=== PATIENT | female | born 1990 | race African-American/Black ===

== ENCOUNTER 2016-07-29 09:36 | Emergency (ER) | payer OTHER ==
[~2016-07-29 09:36] MED LIST: /ESCI20TA OR; /QUET10TA OR; FERR325T3 PO; IBUP200T45 PO; LAMI25TA OR; NORCOTAB PO; TRAM50TA2 OR
[2016-07-29 10:46] LABS: ANION GAP 11 MEQ/L (8-16); BLOOD UREA NITROGEN 8 MG/DL (7-18); CALCIUM LEVEL 9.1 MG/DL (8.5-10.1); CARBON DIOXIDE LEVEL 24 MEQ/L (21-32); CHLORIDE LEVEL 105 MEQ/L (98-107); GLOMERULAR FILTRATION RATE > 60.0 (>60); GLUCOSE, FASTING 78 MG/DL (70-105); POTASSIUM SERUM 3.4 MEQ/L (3.5-5.1); SODIUM LEVEL 140 MEQ/L (136-145)
--- NOTE | 2016-07-29 10:54 | ECGEPIP ---
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
[2016-07-29] MEDS ORDERED: POTASSIUM CHLORIDE 10 MEQ SR TABLET As Ordered ONE (11:25)
[2016-07-29] MEDS ORDERED: MECLIZINE 12.5 MG TAB As Ordered ONE (12:42)
--- NOTE | 2016-07-29 13:53 | EDDOCDS ---
Physician Documentation [facility] Name: Rebeca Walters Age: 25 yrs Sex: Female : 1990 Arrival Date: 07/29/2016 Time: 09:36 Bed 10 Private MD: NO PRIMARY PHYSICIAN, . Disposition: 07/29 10:52 I have independently interviewed and examined the patient, and I agree with the pc investigation, diagnosis and treatment plan as documented by the Resident. Disposition: 07/29/16 13:39 Discharged to Home/Self Care. Impression: Hypokalemia, Other peripheral vertigo. - Condition is Stable. - Discharge Instructions: Vertigo, [id number]. - Prescriptions for Antivert 50 mg Oral Tablet - take 1 tablet by ORAL route 2 times per day; 20 tablet. - Medication Reconciliation, Local Pharmacy Hours, Work Release Form - 1 day form. - Follow up: Tyler Paiz; When: Call to arrange an appointment; Reason: Recheck today's complaints, Continuance of care. Follow up: Guzman Aguirre; When: Call to arrange an appointment; Reason: Recheck today's complaints, Continuance of care. - Problem is new. - Symptoms have improved. - Notes: You were evaluated in the emergency department for palpitations and dizziness. Except for your potassium being a little low, the rest of your work-up has been negative. You were given potassium and meclizine in the ED. A prescription of meclizine has been provided at time of discharge. Please schedule an appointment with your DANCE PROFESSOR and with Guzman Aguirre at your soonest convenience to discuss today's complaints. Historical: - Allergies: no known allergies; - Home Meds: 1. none - PMHx: Migraine Headaches; - PSHx: x 3; - Social history: Smoking status: Patient states former smoker of tobacco. No barriers to communication noted, The patient speaks fluent Chadian. - Family history: Not pertinent. - : The pt / caregiver states he / she is not on anticoagulants. Home medication list is obtained from the patient. - Exposure Risk Screening:: None identified. DANCE PROFESSOR: 09:45 LMP 04/09/2016, Verified, EDC 01/14/2017, Gestational age from LMP: 15 weeks 6 jjr days Vital Signs: 09:38 BP 148 / 91; Pulse 93; Resp 16; Temp 98.4; Pulse Ox 100% on R/A; Weight 123.38 kg / elp 272.01 lbs (R); Height 5 ft. 1 in. (154.94 cm) (R); Pain 0/10; 10:38 BP 133 / 99 Supine; Pulse 79; ead 10:39 BP 127 / 78 Sitting; Pulse 80; ead 10:40 BP 131 / 74 Standing; Pulse 80; ead 12:45 BP 143 / 85 (auto/); ead 12:46 Pulse 92 MON; Resp 16; Pulse Ox 100% on R/A; Pain 0/10; ead 13:51 BP 144 / 79; Pulse 82; Resp 16; Temp 98.6(O); Pulse Ox 99% on R/A; Pain 0/10; ead 09:38 Body Mass Index 51.39 (123.38 kg, 154.94 cm) elp MDM: 09:48 ECG WITH READING ER PHYS+CARDIAG ordered. EDMS 10:04 Heart Tones ordered. jo4 10:12 Orthostatic VS ordered. jo4 10:32 BMP Ordered. EDMS 10:40 Financial registration complete. mm15 10:44 [facility] Payment Agreement was scanned into [employer] and attached to record. mm15 11:13 BMP Reviewed. jo4 11:14 Potassium Chloride Extended Release Tablet 40 mEq PO once ordered. jo4 11:31 EKG-ADULT Reviewed. jo4 12:28 Meclizine 50 mg PO once ordered. jo4 Administered Medications: 11:29 Drug: Potassium Chloride 40 mEq [potassium chloride ER 10 mEq tablet,extended release ead (4 tabs)] Route: PO; 12:24 Follow up: Response: No Adverse Reaction ead 12:48 Drug: Meclizine 50 mg [meclizine 12.5 mg tablet (4 tabs)] Route: PO; ead Signatures: Dispatcher [employer] EDMS Alberto Gomez MD MD pc Raymond, Jessica, RN RN jjr McGrath, Marlynn mm15 Sara Vásquez RN RN eaKerri Devine DO DO jo4 The chart was reviewed and I authenticate all verbal orders and agree with the evaluation and treatment provided.Attachments: 10:44 [facility] Payment Agreement mm15 MTDD
--- NOTE | 2016-07-29 13:54 | EDDOCDS ---
Nurse's Notes [facility] Name: Sylwia Briceno Age: 25 yrs Sex: Female : 1990 Arrival Date: 07/29/2016 Time: 09:36 Bed 10 Private MD: NO PRIMARY PHYSICIAN, . Diagnosis: Hypokalemia;Other peripheral vertigo Presentation: 07/29 09:44 Presenting complaint: Patient states: sudden onset heart racing at 0830 this morning, jjr has happened intermittently since with worsening dizziness, pt is approx 16 weeks . Adult Sepsis Screening: The patient does not have new or worsening altered mentation. Patient's respiratory rate is less than 22. Systolic blood pressure is greater than 100. Patient has a qSOFA score of 0- Negative Sepsis Screen. Suicide/Homicide risk assessment- the patient denies having any suicidal and/or homicidal ideations and does not present with any other emotional, behavioral or mental health complaints. Status: Patient is not a special service representative or dependent. Transition of care: patient was not received from another setting of care. 09:44 Acuity: BRYANNA Level 3 jjr 09:44 Method Of Arrival: Walkin/Carried/Asstd jjr Triage Assessment: 09:47 General: Appears in no apparent distress. Pain: Denies pain. HIV screening NA for this jjr visit Offered previously. Neurological: Reports dizziness. Cardiovascular: Chest pain is denied. : Denies cramping vaginal bleeding. 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 none - PMHx: Migraine Headaches; - PSHx: x 3; - Social history: Smoking status: Patient states former smoker of tobacco. No barriers to communication noted, The patient speaks fluent Hebrew. - Family history: Not pertinent. - : The pt / caregiver states he / she is not on anticoagulants. Home medication list is obtained from the patient. - Exposure Risk Screening:: None identified. Screenin:50 Screening information is obtained from the patient. Fall risk: No risks identified. ead Assistance ADL's: requires no assistance with activities of daily living. Abuse/DV Screen: The patient / caregiver reports he/she is: not in a situation that causes fear, pain or injury. Nutritional screening: No deficits noted. Advance Directives: Currently, there is no health care proxy. home support is adequate. Assessment: 10:19 General: Appears in no apparent distress, comfortable, Behavior is appropriate for age, ead cooperative. Pain: Denies pain. Neurological: Level of Consciousness is awake, alert, obeys commands, Oriented to person, place, time, Reports dizziness. Cardiovascular: Reports palpitations. Respiratory: Airway is patent Respiratory effort is even, unlabored. Derm: Skin is dry, Skin is normal. 11:31 Adult Sepsis Screening: The patient does not have new or worsening altered mentation. ead Patient's respiratory rate is less than 22. Systolic blood pressure is greater than 100. Patient has a qSOFA score of 0- Negative Sepsis Screen. General: Appears in no apparent distress, comfortable, Behavior is appropriate for age, cooperative. Neurological: Level of Consciousness is awake, alert, obeys commands, Oriented to person, place, time, Reports dizziness. Respiratory: Airway is patent Respiratory effort is even, unlabored. Derm: Skin is pink, warm & dry. 12:30 General: Appears in no apparent distress, comfortable, Behavior is appropriate for age, ead cooperative. Pain: Denies pain. Neurological: Reports dizziness. Respiratory: Airway is patent Respiratory effort is even, unlabored. Derm: No deficits noted. 13:40 General: Appears in no apparent distress, comfortable, Behavior is appropriate for age, ead cooperative. Pain: Denies pain. Neurological: Level of Consciousness is awake, alert, obeys commands, Oriented to person, place, time. Respiratory: No deficits noted. Derm: Skin is dry, Skin is normal. Vital Signs: 09:38 BP 148 / 91; Pulse 93; Resp 16; Temp 98.4; Pulse Ox 100% on R/A; Weight 123.38 kg (R); elp Height 5 ft. 1 in. (154.94 cm) (R); Pain 0/10; 10:38 BP 133 / 99 Supine; Pulse 79; ead 10:39 BP 127 / 78 Sitting; Pulse 80; ead 10:40 BP 131 / 74 Standing; Pulse 80; ead 12:45 BP 143 / 85 (auto/); ead 12:46 Pulse 92 MON; Resp 16; Pulse Ox 100% on R/A; Pain 0/10; ead 13:51 BP 144 / 79; Pulse 82; Resp 16; Temp 98.6(O); Pulse Ox 99% on R/A; Pain 0/10; ead 09:38 Body Mass Index 51.39 (123.38 kg, 154.94 cm) elp Vitals: 09:38 Log In Time: July 29, 2016 at 09:36. RN notified that patient meets Red Flag elp criteria. 10:45 Heart Tones 142BPM. ead ED Course: 09:38 Patient visited by Indira Jimenez PCA. elp 09:38 NO PRIMARY PHYSICIAN, . is Private Physician. elp 09:38 Patient moved to Waiting elp 09:39 Patient visited by Indira Jimenez PCA. elp 09:41 Sara Vásquez RN is Primary Nurse. elp 09:41 Patient moved to 10 elp 09:45 Triage Initiated jjr 09:52 Kerri Roa DO is PHCP. jo4 09:52 Alberto Gomez MD is Attending Physician. jo4 10:00 EKG done. (by ED staff). Reviewed by Kerri Roa DO. rn1 10:02 Patient visited by Kerri Roa DO. jo4 10:02 Patient visited by Kerri Roa DO. jo4 10:19 Patient visited by Sara Vásquez RN. ead 10:19 Inserted saline lock: 22 gauge in left antecubital area and blood collected. The ead patient tolerated the procedure well. 10:44 [facility] Payment Agreement was scanned into [employer] and attached to record. mm15 10:45 Patient visited by Sara Vásquez RN. ead 11:12 EKG-ADULT Returned. EDMS 11:23 Patient visited by Sara Vásquez RN. eaantonella 12:24 Patient visited by Sara Vásquez RN. ead 12:41 Patient visited by Sara Vásquez RN. ead 13:12 Pt greeted and oriented to ED. Patient advised of names of staff involved in care, rs6 location of call rivero, wait times and NPO status. Accompanied by Significant Other, Patient has correct armband on for positive identification. Placed in gown. Bed in low position. Call light in reach. Side rails up X 1. home decorator on. Pulse ox on. NIBP on. 13:12 Assisted with bedpan. rs6 13:13 Patient visited by Lisa Reno PCA. rs6 13:39 Tyler Paiz MD is Referral Physician. jo4 13:39 Guzman Aguirre PA is Referral Physician. jo4 13:50 The patient / caregiver is instructed regarding the plan of care and ED course. ead 13:50 Discontinued lock intact, bleeding controlled, pressure dressing applied, No ead redness/swelling at site. No procedures done that require assistance. Administered Medications: 11:29 Drug: Potassium Chloride 40 mEq [potassium chloride ER 10 mEq tablet,extended release ead (4 tabs)] Route: PO; 12:24 Follow up: Response: No Adverse Reaction ead 12:48 Drug: Meclizine 50 mg [meclizine 12.5 mg tablet (4 tabs)] Route: PO; ead Order Results: Lab Order: MELBA; SPEC'M 07/29/16 10:16 Test: GLUCOSE, FASTING; Value: 78; Range: 70-105; Units: MG/DL; Status: F Test: BLOOD UREA NITROGEN; Value: 8; Range: 7-18; Units: MG/DL; Status: F Test: CREATININE FOR GFR; Value: 0.60; Range: 0.55-1.02; Units: MG/DL; Status: F Test: GLOMERULAR FILTRATION RATE; Value: > 60.0; Range: >60; Status: F Test: SODIUM LEVEL; Value: 140; Range: 136-145; Units: MEQ/L; Status: F Test: POTASSIUM SERUM; Value: 3.4; Range: 3.5-5.1; Abnormal: Below low normal; Units: MEQ/L; Status: F Test: CHLORIDE LEVEL; Value: 105; Range: 98-107; Units: MEQ/L; Status: F Test: CARBON DIOXIDE LEVEL; Value: 24; Range: 21-32; Units: MEQ/L; Status: F Test: ANION GAP; Value: 11; Range: 8-16; Units: MEQ/L; Status: F Test: CALCIUM LEVEL; Value: 9.1; Range: 8.5-10.1; Units: MG/DL; Status: F Test Note: ; Units are mL/min/1.73 m2 Chronic Kidney Disease Staging per NKF: Stage I & II GFR >=60 Normal to Mildly Decreased Stage III GFR 30-59 Moderately Decreased Stage IV GFR 15-29 Severely Decreased Stage V GFR <15 Very Little GFR Left ESRD GFR <15 on CLAIMS ADJUSTER CROP Radiology Order: EKG-ADULT Test: EKG-ADULT REASON FOR EXAMINATION: palpitations; Stationary ECG Study; [facility] - ED; ; Test Date: 2016-07-29; Pat Name: SYLWIA BRICENO Department:; Room: -; Gender: F Clinical Education Specialist: rn; : 1990 Requested By: Alberto Snell; Order Number: [id number] Reading MD: Johana Green; Measurements; Intervals [place]; Rate: 85 P: 48; CT: 165 QRS: 21; QRSD: 89 T: 13; QT: 364; QTc: 433; Interpretive Statements; SINUS RHYTHM; NONSPECIFIC T-WAVE ABNORMALITY; NO PRIOR FOR COMPARISON; Electronically Signed On 07-29-2016 10:54:41 EST by Johana Green; Outcome: 13:39 Discharge ordered by Provider. jo4 13:51 Discharge Assessment: Patient awake and alert. obeys commands, Oriented to person, ead place and time. patient administered narcotics - no. The following High Risk Discharge criteria are identified: None. Discharged to home ambulatory, with significant other. Condition: improved. Discharge instructions given to patient, significant other, Instructed on discharge instructions, follow up and referral plans. medication usage, Demonstrated understanding of instructions, medications, Pt was receptive of discharge instructions/ teaching. Prescriptions given X 1, Work note provided to patient. No special radiology studies were completed. Property sent home with patient. 13:52 Patient left the ED. ead Signatures: Dispatcher CelsoHoGilda Mayer, RN Carlita Wall mm15 Indira Jimenez, SALES COMMUNICATIONS MANAGER SALES COMMUNICATIONS MANAGER alfredp Sara Vásquez RN RN ead Schmitt, Rebecca, SALES COMMUNICATIONS MANAGER SALES COMMUNICATIONS MANAGER [email or web address] Jacob Rosenberg rn1 Kerri Roa DO DO jo4 MTDD
--- NOTE | 2016-07-31 14:53 | EDDOCDS ---
Physician Documentation [facility] Name: Rebeca Walters Age: 25 yrs Sex: Female : 1990 Arrival Date: 07/29/2016 Time: 09:36 Bed 10 Private MD: NO PRIMARY PHYSICIAN, . Disposition: 07/29 10:52 I have independently interviewed and examined the patient, and I agree with the pc investigation, diagnosis and treatment plan as documented by the Resident. Disposition: 07/29/16 13:39 Discharged to Home/Self Care. Impression: Hypokalemia, Other peripheral vertigo. - Condition is Stable. - Discharge Instructions: Vertigo, [id number]. - Prescriptions for Antivert 50 mg Oral Tablet - take 1 tablet by ORAL route 2 times per day; 20 tablet. - Medication Reconciliation, Local Pharmacy Hours, Work Release Form - 1 day form. - Follow up: Tyler Paiz; When: Call to arrange an appointment; Reason: Recheck today's complaints, Continuance of care. Follow up: Guzman Aguirre; When: Call to arrange an appointment; Reason: Recheck today's complaints, Continuance of care. - Problem is new. - Symptoms have improved. - Notes: You were evaluated in the emergency department for palpitations and dizziness. Except for your potassium being a little low, the rest of your work-up has been negative. You were given potassium and meclizine in the ED. A prescription of meclizine has been provided at time of discharge. Please schedule an appointment with your CONTINGENTS SUPERVISOR and with Guzman Aguirre at your soonest convenience to discuss today's complaints. Historical: - Allergies: no known allergies; - Home Meds: 1. none - PMHx: Migraine Headaches; - PSHx: x 3; - Social history: Smoking status: Patient states former smoker of tobacco. No barriers to communication noted, The patient speaks fluent Senegalese. - Family history: Not pertinent. - : The pt / caregiver states he / she is not on anticoagulants. Home medication list is obtained from the patient. - Exposure Risk Screening:: None identified. CONTINGENTS SUPERVISOR: 09:45 LMP 04/09/2016, Verified, EDC 01/14/2017, Gestational age from LMP: 15 weeks 6 jjr days Vital Signs: 09:38 BP 148 / 91; Pulse 93; Resp 16; Temp 98.4; Pulse Ox 100% on R/A; Weight 123.38 kg / elp 272.01 lbs (R); Height 5 ft. 1 in. (154.94 cm) (R); Pain 0/10; 10:38 BP 133 / 99 Supine; Pulse 79; ead 10:39 BP 127 / 78 Sitting; Pulse 80; ead 10:40 BP 131 / 74 Standing; Pulse 80; ead 12:45 BP 143 / 85 (auto/); ead 12:46 Pulse 92 MON; Resp 16; Pulse Ox 100% on R/A; Pain 0/10; ead 13:51 BP 144 / 79; Pulse 82; Resp 16; Temp 98.6(O); Pulse Ox 99% on R/A; Pain 0/10; ead 09:38 Body Mass Index 51.39 (123.38 kg, 154.94 cm) elp MDM: 09:48 ECG WITH READING ER PHYS+CARDIAG ordered. EDMS 10:04 Heart Tones ordered. jo4 10:12 Orthostatic VS ordered. jo4 10:32 BMP Ordered. EDMS 10:40 Financial registration complete. mm15 10:44 [facility] Payment Agreement was scanned into [employer] and attached to record. mm15 11:13 BMP Reviewed. jo4 11:14 Potassium Chloride Extended Release Tablet 40 mEq PO once ordered. jo4 11:31 EKG-ADULT Reviewed. jo4 12:28 Meclizine 50 mg PO once ordered. jo4 14:59 T-Sheet-- Draft Copy was scanned into [employer] and attached to record. gb 15:00 ECG/EKG was scanned into [employer] and attached to record. gb Administered Medications: 11:29 Drug: Potassium Chloride 40 mEq [potassium chloride ER 10 mEq tablet,extended release ead (4 tabs)] Route: PO; 12:24 Follow up: Response: No Adverse Reaction ead 12:48 Drug: Meclizine 50 mg [meclizine 12.5 mg tablet (4 tabs)] Route: PO; ead Signatures: Dispatcher [employer] EDMS Alberto Gomez MD MD pc Kristine Lai, Reg Reg gb Gilda Membreno, RN RN Carlita Pena mm15 Sara Vásquez RN RN swatiKerri Devine DO DO jo4 The chart was reviewed and I authenticate all verbal orders and agree with the evaluation and treatment provided.Attachments: 10:44 [facility] Payment Agreement mm15 14:59 T-Sheet-- Draft Copy gb 15:00 ECG/EKG gb Chart Complete MTDD
--- NOTE | 2016-07-31 14:53 | EDDOCDS ---
Physician Documentation [facility] Name: Rebeca Walters Age: 25 yrs Sex: Female : 1990 Arrival Date: 07/29/2016 Time: 09:36 Bed 10 Private MD: NO PRIMARY PHYSICIAN, . Disposition: 07/29 10:52 I have independently interviewed and examined the patient, and I agree with the pc investigation, diagnosis and treatment plan as documented by the Resident. Disposition: 07/29/16 13:39 Discharged to Home/Self Care. Impression: Hypokalemia, Other peripheral vertigo. - Condition is Stable. - Discharge Instructions: Vertigo, [id number]. - Prescriptions for Antivert 50 mg Oral Tablet - take 1 tablet by ORAL route 2 times per day; 20 tablet. - Medication Reconciliation, Local Pharmacy Hours, Work Release Form - 1 day form. - Follow up: Tyler Paiz; When: Call to arrange an appointment; Reason: Recheck today's complaints, Continuance of care. Follow up: Guzman Aguirre; When: Call to arrange an appointment; Reason: Recheck today's complaints, Continuance of care. - Problem is new. - Symptoms have improved. - Notes: You were evaluated in the emergency department for palpitations and dizziness. Except for your potassium being a little low, the rest of your work-up has been negative. You were given potassium and meclizine in the ED. A prescription of meclizine has been provided at time of discharge. Please schedule an appointment with your SPRING FITTER and with Guzman Aguirre at your soonest convenience to discuss today's complaints. Historical: - Allergies: no known allergies; - Home Meds: 1. none - PMHx: Migraine Headaches; - PSHx: x 3; - Social history: Smoking status: Patient states former smoker of tobacco. No barriers to communication noted, The patient speaks fluent German. - Family history: Not pertinent. - : The pt / caregiver states he / she is not on anticoagulants. Home medication list is obtained from the patient. - Exposure Risk Screening:: None identified. SPRING FITTER: 09:45 LMP 04/09/2016, Verified, EDC 01/14/2017, Gestational age from LMP: 15 weeks 6 jjr days Vital Signs: 09:38 BP 148 / 91; Pulse 93; Resp 16; Temp 98.4; Pulse Ox 100% on R/A; Weight 123.38 kg / elp 272.01 lbs (R); Height 5 ft. 1 in. (154.94 cm) (R); Pain 0/10; 10:38 BP 133 / 99 Supine; Pulse 79; ead 10:39 BP 127 / 78 Sitting; Pulse 80; ead 10:40 BP 131 / 74 Standing; Pulse 80; ead 12:45 BP 143 / 85 (auto/); ead 12:46 Pulse 92 MON; Resp 16; Pulse Ox 100% on R/A; Pain 0/10; ead 13:51 BP 144 / 79; Pulse 82; Resp 16; Temp 98.6(O); Pulse Ox 99% on R/A; Pain 0/10; ead 09:38 Body Mass Index 51.39 (123.38 kg, 154.94 cm) elp MDM: 09:48 ECG WITH READING ER PHYS+CARDIAG ordered. EDMS 10:04 Heart Tones ordered. jo4 10:12 Orthostatic VS ordered. jo4 10:32 BMP Ordered. EDMS 10:40 Financial registration complete. mm15 10:44 [facility] Payment Agreement was scanned into [employer] and attached to record. mm15 11:13 BMP Reviewed. jo4 11:14 Potassium Chloride Extended Release Tablet 40 mEq PO once ordered. jo4 11:31 EKG-ADULT Reviewed. jo4 12:28 Meclizine 50 mg PO once ordered. jo4 14:59 T-Sheet-- Draft Copy was scanned into [employer] and attached to record. gb 15:00 ECG/EKG was scanned into [employer] and attached to record. gb Administered Medications: 11:29 Drug: Potassium Chloride 40 mEq [potassium chloride ER 10 mEq tablet,extended release ead (4 tabs)] Route: PO; 12:24 Follow up: Response: No Adverse Reaction ead 12:48 Drug: Meclizine 50 mg [meclizine 12.5 mg tablet (4 tabs)] Route: PO; ead Signatures: Dispatcher [employer] EDMS Alberto Gomez MD MD pc Kristine Lai, Reg Reg gb Gilda Membreno, RN RN Carlita Pena mm15 Sara Vásquez RN RN swatiKerri Devine DO DO jo4 The chart was reviewed and I authenticate all verbal orders and agree with the evaluation and treatment provided.Attachments: 10:44 [facility] Payment Agreement mm15 14:59 T-Sheet-- Draft Copy gb 15:00 ECG/EKG gb Chart Complete MTDD
--- NOTE | 2016-07-31 14:53 | EDDOCDS ---
Nurse's Notes [facility] Name: Sylwia Briceno Age: 25 yrs Sex: Female : 1990 Arrival Date: 07/29/2016 Time: 09:36 Bed 10 Private MD: NO PRIMARY PHYSICIAN, . Diagnosis: Hypokalemia;Other peripheral vertigo Presentation: 07/29 09:44 Presenting complaint: Patient states: sudden onset heart racing at 0830 this morning, jjr has happened intermittently since with worsening dizziness, pt is approx 16 weeks . Adult Sepsis Screening: The patient does not have new or worsening altered mentation. Patient's respiratory rate is less than 22. Systolic blood pressure is greater than 100. Patient has a qSOFA score of 0- Negative Sepsis Screen. Suicide/Homicide risk assessment- the patient denies having any suicidal and/or homicidal ideations and does not present with any other emotional, behavioral or mental health complaints. Status: Patient is not a financial services director or dependent. Transition of care: patient was not received from another setting of care. 09:44 Acuity: BRYANNA Level 3 jjr 09:44 Method Of Arrival: Walkin/Carried/Asstd jjr Triage Assessment: 09:47 General: Appears in no apparent distress. Pain: Denies pain. HIV screening NA for this jjr visit Offered previously. Neurological: Reports dizziness. Cardiovascular: Chest pain is denied. : Denies cramping vaginal bleeding. 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 none - PMHx: Migraine Headaches; - PSHx: x 3; - Social history: Smoking status: Patient states former smoker of tobacco. No barriers to communication noted, The patient speaks fluent Lithuanian. - Family history: Not pertinent. - : The pt / caregiver states he / she is not on anticoagulants. Home medication list is obtained from the patient. - Exposure Risk Screening:: None identified. Screenin:50 Screening information is obtained from the patient. Fall risk: No risks identified. ead Assistance ADL's: requires no assistance with activities of daily living. Abuse/DV Screen: The patient / caregiver reports he/she is: not in a situation that causes fear, pain or injury. Nutritional screening: No deficits noted. Advance Directives: Currently, there is no health care proxy. home support is adequate. Assessment: 10:19 General: Appears in no apparent distress, comfortable, Behavior is appropriate for age, ead cooperative. Pain: Denies pain. Neurological: Level of Consciousness is awake, alert, obeys commands, Oriented to person, place, time, Reports dizziness. Cardiovascular: Reports palpitations. Respiratory: Airway is patent Respiratory effort is even, unlabored. Derm: Skin is dry, Skin is normal. 11:31 Adult Sepsis Screening: The patient does not have new or worsening altered mentation. ead Patient's respiratory rate is less than 22. Systolic blood pressure is greater than 100. Patient has a qSOFA score of 0- Negative Sepsis Screen. General: Appears in no apparent distress, comfortable, Behavior is appropriate for age, cooperative. Neurological: Level of Consciousness is awake, alert, obeys commands, Oriented to person, place, time, Reports dizziness. Respiratory: Airway is patent Respiratory effort is even, unlabored. Derm: Skin is pink, warm & dry. 12:30 General: Appears in no apparent distress, comfortable, Behavior is appropriate for age, ead cooperative. Pain: Denies pain. Neurological: Reports dizziness. Respiratory: Airway is patent Respiratory effort is even, unlabored. Derm: No deficits noted. 13:40 General: Appears in no apparent distress, comfortable, Behavior is appropriate for age, ead cooperative. Pain: Denies pain. Neurological: Level of Consciousness is awake, alert, obeys commands, Oriented to person, place, time. Respiratory: No deficits noted. Derm: Skin is dry, Skin is normal. Vital Signs: 09:38 BP 148 / 91; Pulse 93; Resp 16; Temp 98.4; Pulse Ox 100% on R/A; Weight 123.38 kg (R); elp Height 5 ft. 1 in. (154.94 cm) (R); Pain 0/10; 10:38 BP 133 / 99 Supine; Pulse 79; ead 10:39 BP 127 / 78 Sitting; Pulse 80; ead 10:40 BP 131 / 74 Standing; Pulse 80; ead 12:45 BP 143 / 85 (auto/); ead 12:46 Pulse 92 MON; Resp 16; Pulse Ox 100% on R/A; Pain 0/10; ead 13:51 BP 144 / 79; Pulse 82; Resp 16; Temp 98.6(O); Pulse Ox 99% on R/A; Pain 0/10; ead 09:38 Body Mass Index 51.39 (123.38 kg, 154.94 cm) elp Vitals: 09:38 Log In Time: July 29, 2016 at 09:36. RN notified that patient meets Red Flag elp criteria. 10:45 Heart Tones 142BPM. ead ED Course: 09:38 Patient visited by Indira Jimenez PCA. elp 09:38 NO PRIMARY PHYSICIAN, . is Private Physician. elp 09:38 Patient moved to Waiting elp 09:39 Patient visited by Indira Jimenez PCA. elp 09:41 Sara Vásquez RN is Primary Nurse. elp 09:41 Patient moved to 10 elp 09:45 Triage Initiated jjr 09:52 Kerri Roa DO is PHCP. jo4 09:52 Alberto Gomez MD is Attending Physician. jo4 10:00 EKG done. (by ED staff). Reviewed by Kerri Roa DO. rn1 10:02 Patient visited by Kerri Roa DO. jo4 10:02 Patient visited by Kerri Roa DO. jo4 10:19 Patient visited by Sara Vásquez RN. ead 10:19 Inserted saline lock: 22 gauge in left antecubital area and blood collected. The ead patient tolerated the procedure well. 10:44 [facility] Payment Agreement was scanned into [employer] and attached to record. mm15 10:45 Patient visited by Sara Vásquez RN. ead 11:12 EKG-ADULT Returned. EDMS 11:23 Patient visited by Sara Vásquez RN. eaantonella 12:24 Patient visited by Sara Vásquez RN. ead 12:41 Patient visited by Sara Vásquez RN. ead 13:12 Pt greeted and oriented to ED. Patient advised of names of staff involved in care, rs6 location of call rivero, wait times and NPO status. Accompanied by Significant Other, Patient has correct armband on for positive identification. Placed in gown. Bed in low position. Call light in reach. Side rails up X 1. monitoring manager on. Pulse ox on. NIBP on. 13:12 Assisted with bedpan. rs6 13:13 Patient visited by Lisa Reno PCA. rs6 13:39 Tyler Paiz MD is Referral Physician. jo4 13:39 Guzman Aguirre PA is Referral Physician. jo4 13:50 The patient / caregiver is instructed regarding the plan of care and ED course. ead 13:50 Discontinued lock intact, bleeding controlled, pressure dressing applied, No ead redness/swelling at site. No procedures done that require assistance. 14:59 T-Sheet-- Draft Copy was scanned into [employer] and attached to record. gb 15:00 ECG/EKG was scanned into [employer] and attached to record. gb Administered Medications: 11:29 Drug: Potassium Chloride 40 mEq [potassium chloride ER 10 mEq tablet,extended release ead (4 tabs)] Route: PO; 12:24 Follow up: Response: No Adverse Reaction ead 12:48 Drug: Meclizine 50 mg [meclizine 12.5 mg tablet (4 tabs)] Route: PO; ead Order Results: Lab Order: BMP; SPEC'M 07/29/16 10:16 Test: GLUCOSE, FASTING; Value: 78; Range: 70-105; Units: MG/DL; Status: F Test: BLOOD UREA NITROGEN; Value: 8; Range: 7-18; Units: MG/DL; Status: F Test: CREATININE FOR GFR; Value: 0.60; Range: 0.55-1.02; Units: MG/DL; Status: F Test: GLOMERULAR FILTRATION RATE; Value: > 60.0; Range: >60; Status: F Test: SODIUM LEVEL; Value: 140; Range: 136-145; Units: MEQ/L; Status: F Test: POTASSIUM SERUM; Value: 3.4; Range: 3.5-5.1; Abnormal: Below low normal; Units: MEQ/L; Status: F Test: CHLORIDE LEVEL; Value: 105; Range: 98-107; Units: MEQ/L; Status: F Test: CARBON DIOXIDE LEVEL; Value: 24; Range: 21-32; Units: MEQ/L; Status: F Test: ANION GAP; Value: 11; Range: 8-16; Units: MEQ/L; Status: F Test: CALCIUM LEVEL; Value: 9.1; Range: 8.5-10.1; Units: MG/DL; Status: F Test Note: ; Units are mL/min/1.73 m2 Chronic Kidney Disease Staging per NKF: Stage I & II GFR >=60 Normal to Mildly Decreased Stage III GFR 30-59 Moderately Decreased Stage IV GFR 15-29 Severely Decreased Stage V GFR <15 Very Little GFR Left ESRD GFR <15 on STOCK MOVER Radiology Order: EKG-ADULT Test: EKG-ADULT REASON FOR EXAMINATION: palpitations; Stationary ECG Study; [facility] - ED; ; Test Date: 2016-07-29; Pat Name: SYLWIA BRICENO Department:; Room: -; 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 jo4 13:51 Discharge Assessment: Patient awake and alert. obeys commands, Oriented to person, ead place and time. patient administered narcotics - no. The following High Risk Discharge criteria are identified: None. Discharged to home ambulatory, with significant other. Condition: improved. Discharge instructions given to patient, significant other, Instructed on discharge instructions, follow up and referral plans. medication usage, Demonstrated understanding of instructions, medications, Pt was receptive of discharge instructions/ teaching. Prescriptions given X 1, Work note provided to patient. No special radiology studies were completed. Property sent home with patient. 13:52 Patient left the ED. ead Signatures: Dispatcher [employer] EDMS Kristine Lai, Reg Reg gb Gilda Membreno, RN RN Carlita Pena mm15 Indira Jimenez, SAM ENGINEER TECHNICIAN Sara Enrique RN RN swatid Lisa Reno, ENGINEER TECHNICIAN ENGINEER TECHNICIAN rs6 Jacob Rosenberg rn1 Kerri Roa DO DO jo4 Chart Complete MTDD
== END 2016-07-29 13:52 | disposition home or self-care (01) ==
LOC: M ED 09:36
DX: O99.89 Other specified diseases and conditions complicating pregnancy, childbirth and the puerperium (principal); E87.6 Hypokalemia; H81.49 Vertigo of central origin, unspecified ear; Z3A.15 15 weeks gestation of pregnancy; G43.909 Migraine, unspecified, not intractable, without status migrainosus; Z87.891 Personal history of nicotine dependence

== ENCOUNTER → 2016-08-24 | Outpatient (CLI) | payer OTHER ==
[2016-08-24 20:30] LABS: BASO % 0.2 % (0.0-1.0); EOS # 0.3 K/mm3 (0.0-0.50); LARGE UNSTAINED CELL # 0.1 K/mm3 (0.0-0.4); LARGE UNSTAINED CELL % 0.9 % (0.0-4.0); LYMPH # 2.6 K/mm3 (1.5-6.5); LYMPH % 24.2 % (24.0-44.0); MEAN CORPUSCULAR HEMOGLOBIN 24.8 pg (27.0-33.0); MEAN CORPUSCULAR HGB CONC 31.3 g/dl (32.0-36.5); MEAN CORPUSCULAR VOLUME 79.4 fl (80.0-96.0); MONO # 0.3 K/mm3 (0.0-0.8); MONO % 2.8 % (0.0-5.0); NEUTROPHILS # 7.1 K/mm3 (1.8-7.7); PLATELET COUNT, AUTOMATED 300 k/mm3 (150-450); RED CELL DISTRIBUTION WIDTH 17.1 % (11.5-14.5); WHITE BLOOD COUNT 10.4 K/mm3 (4.0-10.0)
[2016-08-26 10:52] LABS: HBsAg Prenatal NEGATIVE (NEGATIVE)
[2016-08-26 13:57] LABS: HIV SCRN NEGATIVE (NEGATIVE); HIV SCRN1 NEGATIVE (NEGATIVE)
[2016-08-26 13:58] LABS: CONTROL LINE INT CTR LINE PRESENT
== END ==
LOC: M LAB 17:46
PROVIDERS: ATTEND Advanced Practice Midwife
DX: Z34.81 Encounter for supervision of other normal pregnancy, first trimester (principal); Z36 Encounter for antenatal screening of mother; Z3A.00 Weeks of gestation of pregnancy not specified

== ENCOUNTER → 2016-08-24 | Outpatient (CLI) | payer OTHER ==
--- NOTE | 2016-08-25 07:37 | REP ---
OB ULTRASOUND COMPLETE: 08/24/2016 CLINICAL HISTORY: Supervision of , second trimester anatomy screen. Tech notes indicate prior study had been performed in the office, not available to me. By LMP she is 20 weeks 1 day with EDC 01/10/2017. There is a single intrauterine gestation in vertex position. The cervix is 4.7 cm long and closed. There is a posterior grade 0 placenta without previa or abruption. Amniotic fluid volume is visually normal. Biometry: BPD 4.9 cm = 20 weeks 5 daysHC 17.7 cm = 20 weeks 1 dayAC 17.2 cm = 22 weeksFL 3.5 cm = 21 weeks 1 dayHL 3.5 cm = 21 weeks 6 days This gives average ultrasound age 21 weeks 1 day with EDC 01/03/2017. Estimated weight is 428 grams or 15 ounces, which is greater than 97th percentile for dating based on LMP (20 weeks 1 day). All individual measurements are in the normal range with the AC 94th percentile. Measurement ratios show HC/AC 1.03 with a normal range 1.06 to 1.24. anatomy screen shows heart rate 150 and regular. The cranial vault, lateral ventricles, choroid plexus, thalami, cavum septum pellucidum, cerebellum and cisterna magna, face and profile views, four-chamber heart view, ventricular outflow tracts, the lungs, the diaphragm, left-sided stomach bubble, cord insertion are all unremarkable. The three-vessel cord, kidneys, bladder and spine are all incompletely evaluated due to position. Upper lower extremities grossly intact. IMPRESSION: 1. Single insuring gestation in vertex presentation with closed 4.7 cm long cervix, visually normal amniotic fluid volume and posterior grade 0 placenta without previa or abruption. 2. Size and dates by average ultrasound age today is 21 weeks 1 day with EDC 01/03/2017 by that. By LMP she is 20 weeks 1 day with EDC 01/10/2017 use as established due date at this time. 3. Estimated weight 428 grams or 15 ounces is greater than 97 percentile for 20 weeks 1 day. 4. Heart 150 and regular. There is no visible anomalies but the three-vessel cord view, kidneys and bladder and the spine are incompletely evaluated due to position. This may be rechecked later in the second trimester. Signed by Tien Ritchie MD 08/25/2016 04:25 P
== END ==
LOC: M RAD 18:15
PROVIDERS: ATTEND Specialist
DX: Z34.82 Encounter for supervision of other normal pregnancy, second trimester (principal); Z36 Encounter for antenatal screening of mother; Z3A.21 21 weeks gestation of pregnancy

== ENCOUNTER → 2016-11-10 | Outpatient (CLI) | payer OTHER ==
[2016-11-10 15:55] LABS: MEAN CORPUSCULAR HEMOGLOBIN 25.2 pg (27.0-33.0); MEAN CORPUSCULAR HGB CONC 32.4 g/dl (32.0-36.5); MEAN CORPUSCULAR VOLUME 77.6 fl (80.0-96.0); RED CELL DISTRIBUTION WIDTH 16.3 % (11.5-14.5); WHITE BLOOD COUNT 10.4 K/mm3 (4.0-10.0)
== END ==
LOC: M LAB 14:00
PROVIDERS: ATTEND Obstetrics & Gynecology
DX: Z34.83 Encounter for supervision of other normal pregnancy, third trimester (principal); Z36 Encounter for antenatal screening of mother; Z3A.00 Weeks of gestation of pregnancy not specified

== ENCOUNTER → 2016-11-10 | Outpatient (CLI) | payer OTHER ==
--- NOTE | 2016-11-11 08:41 | REP ---
Obstetric ultrasound for anatomy follow-up: The previous anatomy ultrasound of 08/24/2016 did not optimally demonstrate the three-vessel cord, kidneys, bladder or spine. The anatomy previously otherwise was unremarkable. On the study today there is a single intrauterine gestation in a vertex presentation. There is movement and cardiac activity with a heart rate of 39 beats per minute. Placenta is posterior. There is no placenta previa. The placenta demonstrates grade 1 maturity. The amniotic fluid volume subjectively is normal. The amniotic fluid index is 12.6 (8.7 - 23.9). The cervix is 6.6 cm length. By today's ultrasound the gestational age is 32 weeks 4 days with an DIXIE of 01/01/2017. Gestational age by the first ultrasound during this gestation is 32 weeks 2 days and by LMP 31 weeks 2 days. weight is 2234 grams (4 pounds, 14 ounces). This is the 94th percentile for 31 weeks 2 days. On the study today the three-vessel cord, bladder, and spine are adequately visualized and unremarkable. The kidneys demonstrate dilatation of the renal pelves measuring up to 4.4 mm on one side and 7.1 mm on the other side. Up to 4 mm is considered normal. Therefore, follow-up of this finding might be considered. renal ultrasonography might be considered. The remainder of the anatomy was previously unremarkable. Signed by Jose Martin Daniel MD 11/10/2016 03:58 P
== END ==
LOC: M RAD 14:02
PROVIDERS: ATTEND Specialist
DX: O36.8930 Maternal care for other specified fetal problems, third trimester, not applicable or unspecified (principal); Z36 Encounter for antenatal screening of mother; Z3A.32 32 weeks gestation of pregnancy

== ENCOUNTER 2016-11-19 19:15 | Outpatient (CLI) | payer OTHER ==
[~2016-11-19] VITALS: Ht 154.9 cm; Wt 120.0 kg
[2016-11-19 20:56] LABS: ALBUMIN 2.3 GM/DL (3.2-5.2); ALBUMIN/GLOBULIN RATIO 0.53 (1.00-1.93); ALKALINE PHOSPHATASE 195 U/L (45-117); ALT/SGPT 21 U/L (12-78); ANION GAP 10 MEQ/L (8-16); AST/SGOT 15 U/L (15-37); BILIRUBIN,TOTAL 0.3 MG/DL (0.2-1.0); BLOOD UREA NITROGEN 8 MG/DL (7-18); CALCIUM LEVEL 8.7 MG/DL (8.5-10.1); CARBON DIOXIDE LEVEL 22 MEQ/L (21-32); CHLORIDE LEVEL 107 MEQ/L (98-107); CREATININE FOR GFR 0.45 MG/DL (0.55-1.02); GLOMERULAR FILTRATION RATE > 60.0 (>60); GLUCOSE, FASTING 78 MG/DL (70-105); POTASSIUM SERUM 3.7 MEQ/L (3.5-5.1); SODIUM LEVEL 139 MEQ/L (136-145); TOTAL PROTEIN 6.6 GM/DL (6.4-8.2)
[2016-11-19 21:02] LABS: BASO % 0.2 % (0.0-1.0); EOS # 0.1 K/mm3 (0.0-0.50); EOS % 1.3 % (0.0-3.0); LARGE UNSTAINED CELL # 0.1 K/mm3 (0.0-0.4); LARGE UNSTAINED CELL % 1.4 % (0.0-4.0); LYMPH # 2.2 K/mm3 (1.5-6.5); LYMPH % 23.5 % (24.0-44.0); MEAN CORPUSCULAR HEMOGLOBIN 24.6 pg (27.0-33.0); MEAN CORPUSCULAR HGB CONC 31.7 g/dl (32.0-36.5); MEAN CORPUSCULAR VOLUME 77.7 fl (80.0-96.0); MONO # 0.3 K/mm3 (0.0-0.8); MONO % 3.2 % (0.0-5.0); NEUTROPHILS # 6.2 K/mm3 (1.8-7.7); NEUTROPHILS % 70.3 % (36.0-66.0); PLATELET COUNT, AUTOMATED 263 k/mm3 (150-450); RED CELL DISTRIBUTION WIDTH 17.3 % (11.5-14.5); WHITE BLOOD COUNT 8.9 K/mm3 (4.0-10.0)
[2016-11-19] MEDS ORDERED: ACETAMINOPHEN 500 MG TAB PO ONE (21:30)
== END 2016-11-19 21:28 | disposition home or self-care (01) ==
LOC: M LDO 19:15
PROVIDERS: ATTEND Specialist
DX: O47.03 False labor before 37 completed weeks of gestation, third trimester (principal); Z3A.32 32 weeks gestation of pregnancy

== ENCOUNTER 2016-11-25 08:25 | Outpatient (CLI) | payer OTHER ==
[~2016-11-25] VITALS: Ht 157.5 cm; Wt 122.0 kg
[2016-11-25] MEDS ORDERED: COLA100C3 PO (08:37)
[2016-11-25] MEDS ORDERED: PRENTAB9 PO (08:37)
[2016-11-25] MEDS ORDERED: VITA500C3 PO (08:37)
[2016-11-25 08:46] VITALS: BP 137/95
[2016-11-25 08:59] VITALS: BP 139/82
[2016-11-25 10:40] VITALS: BP 136/79
== END 2016-11-25 13:45 | disposition home or self-care (01) ==
LOC: M LDO 08:25
PROVIDERS: ATTEND Obstetrics & Gynecology
DX: O47.03 False labor before 37 completed weeks of gestation, third trimester (principal); Z3A.33 33 weeks gestation of pregnancy

== ENCOUNTER → 2016-12-06 | Outpatient (CLI) | payer OTHER ==
[~2016-12-06] MED LIST changes: +COLA100C3 PO; +PRENTAB9 PO; +VITA500C3 PO
--- NOTE | 2016-12-07 07:22 | REP ---
Clinical: well-being and growth evaluation. Comparison: 11/10/2016 . Findings: Examination demonstrates a single live intrauterine in cephalic presentation. motion is identified by technologist. Placenta is noted right fundally and grade II without evidence for placenta previa or abruption. Amniotic fluid volume is normal. Cervix measures 4.5 cm in length and appears closed. No evidence for nuchal cord. Gestational age by LMP 35 weeks 0 days with DIXIE 01/10/2017 . Gestational age by current measurements 36 weeks 3 days with DIXIE 12/31/2016 . FHR equals 136 beats per minute. BPD 8.8 cm 35 weeks 4 days HC 32.8 cm 37 weeks 2 days AC 31.2 cm 35 weeks 1 day FL 7.3 cm 37 weeks 2 days HL 6.3 cm 36 weeks 5 days HC/AC ratio 1.05 Estimated weight 2817 grams (66th percentile). Biophysical profile score equals 8/8. Amniotic fluid index equals 15.5 cm Umbilical cord SD ratio equals 2.48 Impression: 1. Single live advanced gestation in cephalic presentation demonstrating appropriate interval growth. 2. Biophysical profile score equals 8/8. 3. Grade two placenta without evidence for placenta previa. 4. Amniotic fluid volume within normal limits. Signed by Hayden Cronin MD 12/07/2016 07:13 A
== END ==
LOC: M RAD 15:07
PROVIDERS: ATTEND Obstetrics & Gynecology
DX: O10.013 Pre-existing essential hypertension complicating pregnancy, third trimester (principal); Z36 Encounter for antenatal screening of mother; Z3A.36 36 weeks gestation of pregnancy

== ENCOUNTER → 2016-12-13 | Outpatient (REF) | payer OTHER | LOC: M LAB REF 16:56 | PROVIDERS: ATTEND Specialist | DX: O10.013 Pre-existing essential hypertension complicating pregnancy, third trimester (principal); Z36 Encounter for antenatal screening of mother; Z3A.00 Weeks of gestation of pregnancy not specified ==

== ENCOUNTER 2016-12-29 05:26 | Inpatient (IN) | payer MEDICAID, OTHER ==
[2016-12-29] VITALS (8 sets, daily range): BP systolic 137–172; BP diastolic 77–96
[~2016-12-29] VITALS: Ht 154.9 cm; Wt 127.0 kg
[~2016-12-29 05:26] MED LIST changes: -COLA100C3 PO; +COLA100C5 PO
[2016-12-29] MEDS ORDERED: LR 1,000 ML IV SCH ×2 (05:45→10:00)
[2016-12-29] MEDS ORDERED: BICITRA 30ML SOLN UDC PO ONE (05:45)
[2016-12-29] MEDS ORDERED: LR 1,000 ML IV ONE (05:45)
[2016-12-29 06:25] LABS: MEAN CORPUSCULAR HEMOGLOBIN 24.2 pg (27.0-33.0); MEAN CORPUSCULAR VOLUME 75.5 fl (80.0-96.0); WHITE BLOOD COUNT 11.5 K/mm3 (4.0-10.0)
[2016-12-29] MEDS ORDERED: MORPHINE PRES-FREE INJ 10 MG/10 ML VIAL (J2274) As Ordered ONE (07:20)
[2016-12-29] MEDS ORDERED: OXYTOCIN INJ 10 UNITS/ML VIAL (J2590) As Ordered ONE (07:21)
[2016-12-29] MEDS ORDERED: ONDANSETRON 4MG/2ML VIAL (J2405) As Ordered ONE (08:08)
[2016-12-29] MEDS ORDERED: KETOROLAC 60 MG/2 ML VIAL (J1885) As Ordered ONE (08:08)
[2016-12-29] MEDS ORDERED: PHENYLephrine HCL 500 MCG/5 ML (100MCG/ML) SYRINGE (J2370) As Ordered ONE (08:08)
[2016-12-29] MEDS ORDERED: ePHEDrine SULFATE 25 MG/5 ML(5MG/ML) SYRINGE As Ordered ONE ×2 (08:08→08:37)
[2016-12-29] MEDS: FERROUS SULFATE 325MG TAB PO SCH ×2 (09:00→22:18)
[2016-12-29] MEDS ORDERED: LABETALOL 200 MG TAB PO SCH (09:00)
[2016-12-29] MEDS: ASCORBIC ACID 500 MG TAB PO SCH ×2 (09:00→22:18)
[2016-12-29] MEDS: DOCUSATE SODIUM 100 MG CAP PO SCH ×2 (09:00→22:18)
[2016-12-29] MEDS: PRENATAL VITAMINS CHEWABLE TABLET PO SCH (09:00)
[2016-12-29] MEDS ORDERED: PERCOCET 5MG/325MG TAB PO PRN ×2 (09:30→10:00)
[2016-12-29] MEDS ORDERED: ONDANSETRON 4MG/2ML VIAL (J2405) IV PRN ×2 (09:30→10:00)
[2016-12-29] MEDS ORDERED: RHOGAM 300 MCG (1500 IU) INJ (J2790) IM SCH (09:30)
[2016-12-29] MEDS ORDERED: PROMETHAZINE 25 MG TAB PO PRN (09:30)
[2016-12-29] MEDS ORDERED: MEASLES,MUMPS,RUBELLA VACCINE INJ (MMR-II) (90707) SC SCH (09:30)
[2016-12-29] MEDS ORDERED: HYDROmorphone HCL 1 MG/ML SYRINGE (J1170) IV PRN (10:00)
[2016-12-29] MEDS ORDERED: fentaNYL 100 MCG/2 ML INJECTION (J3010) IV PRN (10:00)
[2016-12-29] MEDS ORDERED: MEPERIDINE INJ 25 MG/ML VIAL (J2175) IV PRN (10:00)
[2016-12-29] MEDS ORDERED: diphenhydrAMINE INJ 50MG/ML VIAL (J1200) IV PRN (10:00)
[2016-12-29] MEDS ORDERED: NALBUPHINE HCL 10 MG/ML AMP (J2300) IV PRN (10:00)
[2016-12-29] MEDS ORDERED: OXYC1TAB23 PO (11:43)
[2016-12-29] MEDS ORDERED: COLA100C5 PO (11:45)
[2016-12-29] MEDS: LR 1,000 ML IV SCH ×2 (12:39→17:21)
[2016-12-29] MEDS: KETOROLAC 30 MG/ML VIAL (J1885) IV SCH ×2 (14:02→20:33)
[2016-12-29] MEDS: LABETALOL 200 MG TAB PO SCH (15:29)
[2016-12-30] VITALS (7 sets, daily range): BP systolic 126–149; BP diastolic 61–88
[2016-12-30] MEDS: LR 1,000 ML IV SCH ×4 (01:21→19:19)
[2016-12-30] MEDS: KETOROLAC 30 MG/ML VIAL (J1885) IV SCH ×2 (03:13→08:50)
[2016-12-30] MEDS: LABETALOL 200 MG TAB PO SCH ×2 (03:14→14:58)
[2016-12-30 07:10] LABS: MEAN CORPUSCULAR HEMOGLOBIN 24.7 pg (27.0-33.0); MEAN CORPUSCULAR HGB CONC 32.3 g/dl (32.0-36.5); MEAN CORPUSCULAR VOLUME 76.5 fl (80.0-96.0); RED CELL DISTRIBUTION WIDTH 16.8 % (11.5-14.5); WHITE BLOOD COUNT 12.1 K/mm3 (4.0-10.0)
[2016-12-30] MEDS: FERROUS SULFATE 325MG TAB PO SCH ×2 (09:39→19:33)
[2016-12-30] MEDS: DOCUSATE SODIUM 100 MG CAP PO SCH ×2 (09:39→19:33)
[2016-12-30] MEDS: PRENATAL VITAMINS CHEWABLE TABLET PO SCH (09:39)
[2016-12-30] MEDS: ASCORBIC ACID 500 MG TAB PO SCH ×2 (09:39→19:33)
[2016-12-30] MEDS: PERCOCET 5MG/325MG TAB PO PRN ×3 (12:38→23:01)
[2016-12-31] MEDS: PERCOCET 5MG/325MG TAB PO PRN ×4 (04:48→20:47)
[2016-12-31] MEDS: LABETALOL 200 MG TAB PO SCH ×2 (04:49→15:20)
[2016-12-31 05:41] VITALS: BP 143/70
[2016-12-31] MEDS ORDERED: LABE10TAB PO (07:06)
[2016-12-31] MEDS: DOCUSATE SODIUM 100 MG CAP PO SCH ×2 (08:55→20:46)
[2016-12-31] MEDS: PRENATAL VITAMINS CHEWABLE TABLET PO SCH (08:55)
[2016-12-31] MEDS: FERROUS SULFATE 325MG TAB PO SCH ×2 (08:55→20:46)
[2016-12-31] MEDS: ASCORBIC ACID 500 MG TAB PO SCH ×2 (08:56→20:46)
[2016-12-31 10:00] VITALS: BP 137/83
[2016-12-31 14:00] VITALS: BP 138/75
[2016-12-31 18:00] VITALS: BP 137/62
[2016-12-31 22:25] VITALS: BP 156/72
[2017-01-01 02:24] VITALS: BP 161/82
[2017-01-01 02:26] VITALS: BP 161/82
[2017-01-01] MEDS: PERCOCET 5MG/325MG TAB PO PRN ×2 (02:26→09:32)
[2017-01-01] MEDS: LABETALOL 200 MG TAB PO SCH (02:26)
[2017-01-01 06:11] VITALS: BP 138/69
[2017-01-01] MEDS: PRENATAL VITAMINS CHEWABLE TABLET PO SCH (08:13)
[2017-01-01] MEDS: ASCORBIC ACID 500 MG TAB PO SCH (08:13)
[2017-01-01] MEDS: DOCUSATE SODIUM 100 MG CAP PO SCH (08:13)
[2017-01-01] MEDS: FERROUS SULFATE 325MG TAB PO SCH (08:13)
[2017-01-01] MEDS ORDERED: PRENTAB9 PO (11:13)
[2017-01-01] MEDS ORDERED: OXYC1TAB23 PO (11:13)
[2017-01-01] MEDS ORDERED: FERR325T3 PO (11:13)
[2017-01-10] MEDS ORDERED: TYLE500T78 PO (02:06)
[2017-01-10] MEDS ORDERED: LABE10TAB PO (02:06)
== END 2017-01-01 12:20 | disposition home or self-care (01) | DRG 540 ==
LOC: M LDI 05:26 → M OBS 09:19
PROVIDERS: ADMIT Obstetrics & Gynecology; ATTEND Obstetrics & Gynecology
PROC: 10D00Z1 Extraction of Products of Conception, Low, Open Approach (ICD-10-PCS; principal; 2016-12-29 07:30)
DX: O34.211 Maternal care for low transverse scar from previous cesarean delivery (principal); Z3A.38 38 weeks gestation of pregnancy; O10.02 Pre-existing essential hypertension complicating childbirth; O99.214 Obesity complicating childbirth; E66.9 Obesity, unspecified; O99.824 Streptococcus B carrier state complicating childbirth; Z37.0 Single live birth; Z68.43 Body mass index [BMI] 50.0-59.9, adult

== ENCOUNTER 2017-01-10 03:45 | Observation (INO) | payer OTHER ==
[~2017-01-10] VITALS: Ht 154.9 cm; Wt 120.0 kg
[2017-01-10] VITALS (7 sets, daily range): BP systolic 54–213; BP diastolic 59–94
[~2017-01-10 03:45] MED LIST changes: +LABE10TAB PO; +OXYC1TAB23 PO; +TYLE500T78 PO
[2017-01-10] MEDS ORDERED: ONDANSETRON 4MG/2ML VIAL (J2405) IV PRN (04:15)
[2017-01-10] MEDS: IBUPROFEN 800 MG TAB PO PRN ×3 (05:05→22:53)
[2017-01-10] MEDS: NIFEdipine 10 MG CAP PO SCH ×3 (06:36→20:57)
[2017-01-10] MEDS: LABETALOL 100 MG TAB PO SCH ×2 (08:55→20:56)
[2017-01-10] MEDS: ACETAMINOPHEN 500 MG TAB PO PRN ×3 (09:06→20:58)
[2017-01-11 02:00] VITALS: BP 133/74
[2017-01-11 06:23] VITALS: BP 144/70
[2017-01-11 08:59] VITALS: BP 173/86
[2017-01-11] MEDS: NIFEdipine 10 MG CAP PO SCH (08:59)
[2017-01-11] MEDS: LABETALOL 100 MG TAB PO SCH (08:59)
[2017-01-11] MEDS ORDERED: PROC10CA PO (10:15)
[2017-01-11] MEDS ORDERED: IBUP-1114 PO (10:15)
[2017-01-11 10:50] VITALS: BP 146/78
== END 2017-01-11 10:55 | disposition home or self-care (01) ==
LOC: M OBS 03:45 → INTOOBSV 03:45
PROVIDERS: ADMIT Specialist; ATTEND Specialist
DX: O10.03 Pre-existing essential hypertension complicating the puerperium (principal); Z98.890 Other specified postprocedural states; Z79.899 Other long term (current) drug therapy

== ENCOUNTER → 2017-05-24 | Outpatient (REF) | payer SELFPAY ==
[~2017-05-24] MED LIST changes: +IBUP-1114 PO; +PROC10CA PO
== END ==
LOC: M LAB REF 18:43
PROVIDERS: ATTEND Advanced Practice Midwife
DX: Z12.4 Encounter for screening for malignant neoplasm of cervix (principal)

== ENCOUNTER → 2017-07-19 | Outpatient (REF) | payer OTHER | LOC: M LAB REF 11:58 | DX: J11.1 Influenza due to unidentified influenza virus with other respiratory manifestations (principal) | CPT/HCPCS: 87633 ==

== ENCOUNTER 2018-01-07 11:28 | Day surgery (SDC) | payer OTHER ==
[2018-01-07] MEDS: NS 1,000 ML IV (12:15)
[2018-01-07 12:27] LABS: BASO # 0.1 10^3/uL (0.0-0.2); BASO % 0.6 % (0.0-1.0); CONTROL LINE HCG INT CTR LINE PRESENT; EOS # 0.5 10^3/uL (0.0-0.50); EOS % 5.2 % (0.0-3.0); HCG, SERUM QUALITATIVE POSITIVE (NEGATIVE); HEMATOCRIT 34.3 % (36.0-47.0); HEMOGLOBIN 10.9 g/dl (12.0-15.5); IMMATURE GRANULOCYTE % 0.2 % (0-3.0); LYMPH # 3.5 10^3/uL (1.5-6.5); LYMPH % 36.2 % (24.0-44.0); MEAN CORPUSCULAR HEMOGLOBIN 25.7 pg (27.0-33.0); MEAN CORPUSCULAR HGB CONC 31.8 g/dl (32.0-36.5); MEAN CORPUSCULAR VOLUME 80.9 fl (80.0-96.0); MONO # 0.3 10^3/uL (0.0-0.8); MONO % 3.4 % (0.0-5.0); NEUTROPHILS # 5.3 10^3/uL (1.8-7.7); NEUTROPHILS % 54.4 % (36.0-66.0); PLATELET COUNT, AUTOMATED 286 10^3/uL (150-450); RED BLOOD COUNT 4.24 10^6/uL (4.00-5.40); RED CELL DISTRIBUTION WIDTH 16.1 % (11.5-14.5); WHITE BLOOD COUNT 9.7 10^3/uL (4.0-10.0)
[2018-01-07 12:38] LABS: ALBUMIN 3.6 GM/DL (3.2-5.2); ALBUMIN/GLOBULIN RATIO 0.97 (1.00-1.93); ALKALINE PHOSPHATASE 100 U/L (45-117); ALT/SGPT 29 U/L (12-78); ANION GAP 7 MEQ/L (8-16); AST/SGOT 21 U/L (7-37); BILIRUBIN,DIRECT < 0.1 MG/DL (0.0-0.2); BILIRUBIN,TOTAL 0.3 MG/DL (0.2-1.0); BLOOD UREA NITROGEN 9 MG/DL (7-18); CALCIUM LEVEL 8.6 MG/DL (8.5-10.1); CARBON DIOXIDE LEVEL 28 MEQ/L (21-32); CHLORIDE LEVEL 107 MEQ/L (98-107); CREATININE FOR GFR 0.66 MG/DL (0.55-1.30); GLOMERULAR FILTRATION RATE > 60.0 (>60); GLUCOSE, FASTING 88 MG/DL (70-100); POTASSIUM SERUM 3.5 MEQ/L (3.5-5.1); SODIUM LEVEL 142 MEQ/L (136-145); TOTAL PROTEIN 7.3 GM/DL (6.4-8.2)
[2018-01-07] MEDS: FIORICET TAB PO (13:11)
[2018-01-07 13:42] LABS: HCG, SERUM QUANTITATIVE 225 MIU/ML
[2018-01-07] MEDS: LABETALOL 100 MG TAB PO (13:53)
[2018-01-07 15:17] LABS: CHLAMYDIA DNA AMPLIFICATION NEGATIVE (NEGATIVE); GC DNA AMPLIFICATION NEGATIVE (NEGATIVE)
[2018-01-07] MEDS ORDERED: dexameTHASONE 4 MG/ML 1ML VIAL (J1100) As Ordered (16:59)
[2018-01-07] MEDS ORDERED: KETOROLAC 60 MG/2 ML VIAL (J1885) As Ordered (16:59)
[2018-01-07] MEDS ORDERED: PROPOFOL 200 MG/20 ML VIAL As Ordered (16:59)
[2018-01-07] MEDS ORDERED: LIDOCAINE 2% INJ 100 MG/5 ML SDV (FOR ANES.) As Ordered (16:59)
[2018-01-07] MEDS ORDERED: ONDANSETRON 4MG/2ML VIAL (J2405) As Ordered (17:00)
[2018-01-07] MEDS ORDERED: METOCLOPRAMIDE INJ 10MG/2ML VIAL (J2765) As Ordered (17:00)
[2018-01-07] MEDS ORDERED: MIDAZOLAM INJ 2 MG/2 ML VIAL (J2250) As Ordered (17:00)
[2018-01-07] MEDS ORDERED: fentaNYL 100 MCG/2 ML INJECTION (J3010) As Ordered ×2 (17:01→17:40)
[2018-01-07] MEDS ORDERED: DOXYCYCLINE HYCLATE 100 MG TAB As Ordered ×2 (17:12→17:16)
[2018-01-07] MEDS ORDERED: MEPERIDINE INJ 25 MG/ML VIAL (J2175) IV (18:00)
[2018-01-07] MEDS ORDERED: LR 1,000 ML IV ×2 (18:00→18:45)
[2018-01-07] MEDS ORDERED: ONDANSETRON 4MG/2ML VIAL (J2405) IV (18:00)
[2018-01-07] MEDS ORDERED: fentaNYL 100 MCG/2 ML INJECTION (J3010) IV (18:00)
[2018-01-07] MEDS ORDERED: METOCLOPRAMIDE INJ 10MG/2ML VIAL (J2765) IV (18:00)
[2018-01-07] MEDS: PERCOCET 5MG/325MG TAB PO ×2 (18:20→18:48)
[2018-01-07] MEDS ORDERED: ACETAMINOPHEN 500 MG TAB PO (18:45)
== END 2018-01-07 19:50 | disposition home or self-care (01) ==
LOC: M ED 11:28 → M SDC 16:00 → M MS5PR 18:58 → M SDC 19:50
DX: O02.1 Missed abortion (principal); I10 Essential (primary) hypertension; F32.9 Major depressive disorder, single episode, unspecified; F41.9 Anxiety disorder, unspecified; J45.909 Unspecified asthma, uncomplicated
CPT/HCPCS: 59820

== ENCOUNTER 2019-08-19 21:38 | Emergency (ER) | payer OTHER, SELFPAY ==
[~2019-08-19] VITALS: Ht 154.9 cm; Wt 118.2 kg
[~2019-08-19 21:38] MED LIST changes: -/ESCI20TA OR; -/QUET10TA OR; +BUTA-198 PO; +HYDR-3715 PO; +LEXA1TAB2 OR; -NORCOTAB PO; +SERO1TAB OR
[2019-08-19] MEDS ORDERED: AZO-95TA3 PO (21:45)
[2019-08-19 21:46] VITALS: BP 183/95
[2019-08-19 22:06] LABS: APPEARANCE, URINE MANUAL CLOUDY (CLEAR); COLOR, URINE MANUAL ORANGE (YELLOW); GLUCOSE, URINE (UA) MANUAL NEGATIVE (NEGATIVE); KETONE, URINE MANUAL OBSCURED mg/dL (NEGATIVE); PH,URINE MAN 5.5 UNITS (5.0 - 7.0); PROTEIN, URINE MANUAL OBSCURED mg/dL (NEGATIVE)
[2019-08-19 22:07] LABS: BILIRUBIN, URINE MANUAL OBSCURED (NEGATIVE); BLOOD URINE MANUAL POSITIVE (NEGATIVE); LEUKOCYTE ESTERASE, URINE MAN POSITIVE (NEGATIVE); NITRITE, URINE MANUAL OBSCURED (NEGATIVE); URINE PREG TEST NEGATIVE (NEGATIVE); UROBILINOGEN, URINE MANUAL OBSCURED mg/dl (NORMAL)
[2019-08-19 22:17] LABS: RBC, URINE 15-20 /hpf (0-3); SQUAMOUS EPITHELIAL CELL URINE SMALL AMOUNT /hpf (SMALL AMT); WBC, URINE TNTC /hpf (0-3)
[2019-08-19 22:18] LABS: AMORPHOUS SEDIMENT, URINE SMALL AMOUNT (NEGATIVE); BACTERIA, URINE SMALL AMOUNT; HYALINE CAST, URINE NONE SEEN /lpf (0-1); MUCUS, URINE SMALL AMOUNT (NEGATIVE)
[2019-08-20] MEDS ORDERED: CIPR-249 PO (00:24)
[2019-08-20] MEDS ORDERED: CIPROFLOXACIN 500 MG TAB PO ONE (00:30)
== END 2019-08-20 00:36 | disposition home or self-care (01) ==
LOC: M ED 21:38
DX: N39.0 Urinary tract infection, site not specified (principal); I10 Essential (primary) hypertension; F32.9 Major depressive disorder, single episode, unspecified; G43.909 Migraine, unspecified, not intractable, without status migrainosus; Z91.048 Other nonmedicinal substance allergy status; Z79.899 Other long term (current) drug therapy

== ENCOUNTER → 2020-03-16 | Outpatient (CLI) | payer OTHER ==
[~2020-03-16] MED LIST changes: +AZO-95TA3 PO; +CIPR-249 PO
[2020-03-16 13:57] LABS: BASO # 0.1 10^3/uL (0.0-0.2); BASO % 0.6 % (0.0-1.0); EOS # 0.4 10^3/uL (0.0-0.5); EOS % 3.9 % (0.0-3.0); HEMATOCRIT 33.3 % (36.0-47.0); HEMOGLOBIN 9.6 g/dl (12.0-15.5); LYMPH # 2.8 10^3/uL (1.5-5.0); LYMPH % 30.4 % (24.0-44.0); MEAN CORPUSCULAR HEMOGLOBIN 20.8 pg (27.0-33.0); MEAN CORPUSCULAR HGB CONC 28.8 g/dl (32.0-36.5); MEAN CORPUSCULAR VOLUME 72.1 fl (80.0-96.0); MONO # 0.4 10^3/uL (0.0-0.8); MONO % 4.1 % (0.0-5.0); NEUTROPHILS # 5.6 10^3/uL (1.5-8.5); NEUTROPHILS % 60.7 % (36.0-66.0); PLATELET COUNT, AUTOMATED 405 10^3/uL (150-450); RED BLOOD COUNT 4.62 10^6/uL (4.00-5.40); WHITE BLOOD COUNT 9.3 10^3/uL (4.0-10.0)
[2020-03-16 14:47] LABS: FOLATE 8.6 NG/ML (>5.4); VITAMIN B12 LEVEL 386 PG/ML (247-911)
[2020-03-16 15:04] LABS: BLOOD UREA NITROGEN 10 MG/DL (7-18); CARBON DIOXIDE LEVEL 26 MEQ/L (21-32); CHLORIDE LEVEL 105 MEQ/L (98-107); GLOMERULAR FILTRATION RATE > 60.0 (>60); GLUCOSE, FASTING 83 MG/DL (70-100); POTASSIUM SERUM 3.7 MEQ/L (3.5-5.1); SODIUM LEVEL 137 MEQ/L (136-145)
[2020-03-16 15:05] LABS: ALBUMIN 3.7 GM/DL (3.2-5.2); ALT/SGPT 24 U/L (12-78); BILIRUBIN,TOTAL 0.2 MG/DL (0.2-1.0); CALCIUM LEVEL 9.1 MG/DL (8.5-10.1); CHOLESTEROL LEVEL 156 MG/DL (<200); CHOLESTEROL RISK RATIO 3.466 (<5); HDL CHOLESTEROL 45 MG/DL (>40); LDL CHOLESTEROL 95 MG/DL (<100); MAGNESIUM LEVEL 2.2 MG/DL (1.8-2.4); NON-HDL-C 111 MG/DL; TOTAL PROTEIN 7.3 GM/DL (6.4-8.2); TRIGLYCERIDES LEVEL 82 MG/DL (<150)
== END ==
LOC: M PLALAB 10:03
PROVIDERS: ATTEND Family Medicine
DX: R53.81 Other malaise (principal); I10 Essential (primary) hypertension; E66.01 Morbid (severe) obesity due to excess calories

== ENCOUNTER 2020-06-10 17:53 | Inpatient (IN) | payer MEDICAID, OTHER, SELFPAY ==
[~2020-06-10] VITALS: Ht 157.5 cm; Wt 124.9 kg
[~2020-06-10 17:53] MED LIST changes: +LABE100T4 PO; -LABE10TAB PO
[2020-06-10] MEDS ORDERED: TRAZ-252 PO (18:03)
[2020-06-10] MEDS ORDERED: ESCI20TA PO (18:03)
[2020-06-10] MEDS ORDERED: ZEST1TAB3 PO (18:03)
[2020-06-10] MEDS ORDERED: AMLO1TAB25 PO (18:03)
[2020-06-10] MEDS ORDERED: LAMO25TA4 PO (18:03)
[2020-06-10] MEDS ORDERED: FERR32TA PO (18:03)
[2020-06-10] MEDS ORDERED: NS 1,000 ML IV ONE (18:30)
[2020-06-10 19:54] LABS: BASO # 0.1 10^3/uL (0.0-0.2); BASO % 0.5 % (0.0-1.0); EOS # 0.4 10^3/uL (0.0-0.5); EOS % 2.9 % (0.0-3.0); HEMATOCRIT 42.7 % (36.0-47.0); HEMOGLOBIN 12.7 g/dl (12.0-15.5); LYMPH # 2.3 10^3/uL (1.5-5.0); LYMPH % 16.9 % (24.0-44.0); MEAN CORPUSCULAR HEMOGLOBIN 24.5 pg (27.0-33.0); MEAN CORPUSCULAR HGB CONC 29.7 g/dl (32.0-36.5); MEAN CORPUSCULAR VOLUME 82.4 fl (80.0-96.0); MONO # 0.7 10^3/uL (0.0-0.8); MONO % 5.2 % (0.0-5.0); NEUTROPHILS # 10.1 10^3/uL (1.5-8.5); PLATELET COUNT, AUTOMATED 311 10^3/uL (150-450); RED BLOOD COUNT 5.18 10^6/uL (4.00-5.40); WHITE BLOOD COUNT 13.6 10^3/uL (4.0-10.0)
[2020-06-10] MEDS ORDERED: ACETAMINOPHEN 500 MG TAB PO ONE (20:45)
[2020-06-10] MEDS: FERROUS GLUCONATE 324 MG TAB PO SCH (21:00)
[2020-06-10] MEDS: traZODone 50 MG TAB PO SCH (21:00)
[2020-06-10 21:20] LABS: HCG, SERUM QUALITATIVE NEGATIVE (NEGATIVE)
[2020-06-10 21:26] LABS: ALBUMIN 3.4 GM/DL (3.2-5.2); ALT/SGPT 30 U/L (12-78); BILIRUBIN,DIRECT 0.1 MG/DL (0.0-0.2); BILIRUBIN,TOTAL 0.3 MG/DL (0.2-1.0); BLOOD UREA NITROGEN 14 MG/DL (7-18); CALCIUM LEVEL 8.7 MG/DL (8.5-10.1); CARBON DIOXIDE LEVEL 28 MEQ/L (21-32); CHLORIDE LEVEL 104 MEQ/L (98-107); CK-MB VALUE MASS < 1.0 NG/ML (<3.6); CPK CREATINE PHOSPHOKINASE 92 U/L (26-192); CREATININE FOR GFR 0.73 MG/DL (0.55-1.30); GLOMERULAR FILTRATION RATE > 60.0 (>60); GLUCOSE, FASTING 104 MG/DL (70-100); LIPASE 8793 U/L (73-393); MB/CK RELATIVE INDEX 1.09 (< OR =4); POTASSIUM SERUM 4.1 MEQ/L (3.5-5.1); SODIUM LEVEL 139 MEQ/L (136-145); TOTAL PROTEIN 6.7 GM/DL (6.4-8.2); TROPONIN I < 0.02 NG/ML (< 0.10)
[2020-06-10] MEDS ORDERED: ONDANSETRON 4MG/2ML VIAL IV ONE (21:30)
[2020-06-10] MEDS ORDERED: MORPHINE 4 MG/ML 1ML VIAL/SYRINGE (J2270) IV ONE (22:45)
[2020-06-10] MEDS ORDERED: ISOVUE-370 76% 100ML VIAL As Ordered ONE (22:55)
[2020-06-10] MEDS ORDERED: diphenhydrAMINE 50MG/ML VIAL (J1200) IV STA (23:01)
[2020-06-11] MEDS ORDERED: FERR32TA PO (01:13)
[2020-06-11] MEDS ORDERED: LISI20TA20 PO (01:13)
[2020-06-11] MEDS ORDERED: LEXA1TAB2 PO (01:13)
[2020-06-11] MEDS ORDERED: LAMO25TA4 PO (01:13)
[2020-06-11] MEDS ORDERED: AMLO1TAB25 PO (01:13)
[2020-06-11] MEDS ORDERED: TRAZ-186 PO (01:13)
[2020-06-11] MEDS ORDERED: MAALOX 30 ML SUSP *UDC PO PRN (01:30)
[2020-06-11] MEDS: NS 1,000 ML IV SCH ×6 (01:43→23:26)
--- NOTE | 2020-06-11 01:58 | HPEPDOC ---
[facility] Medical History & Physical Date of Admission Jun 11, 2020 Date of Service: Jun 11, 2020 Primary Care Physician: Abbi Hsu Attending Physician: THOMAS GAGE MD History and Physical TIME OF SERVICE: 1:40 AM CHIEF COMPLAINT: Abdominal pain HISTORY OF PRESENT ILLNESS: This 21 year old female presented with complaints of epigastric abdominal pain that began on Monday evening. She has never had this kind of pain before. The pain which she described as dull and throbbing, that was 8 out of 10 in severity at it its worst radiated to her back and become more severe, therefore, she decided to come to the hospital for evaluation. She denied having nausea, vomiting, diarrhea, fever or chills. REVIEW OF SYSTEMS: 12 point review of systems negative except as listed in HPI PAST MEDICAL/ SURGICAL HISTORY: Borderline personality disorder Chronic hypertension Class 3 Obesity SOCIAL HISTORY: She smokes She does drink alcohol use, recreational drugs FAMILY HISTORY: Coronary disease and diabetes on the maternal side of her family ALLERGIES: Please see below. HOME MEDICATIONS: Please see below. PHYSICAL EXAMINATION: Vital Signs Date Time Temp Pulse Resp B/P (MAP) Pulse Ox O2 Delivery O2 Flow Rate FiO2 06/10/20 17:54 97.8 95 22 171/108 (129) 100 Room Air GEN: obese/ well developed/ NAD INTEGUMENT: not flushed HEENT: sclera anicteric CVS: RRR/NMRG/ radial pulses intact LUNGS: able to speak full sentences without stopping to take a breath / no coughing / lungs are clear to auscultation bilaterally on room air ABDOMEN: Contour ( obese) / t here is voluntary guarding/abdomen is soft & not tender with palpation MSK/EXTREMITIES: NCAT NEURO: CN 2-12 are grossly intact / speech is not dysarthric / strength is 5/5 PSYCH: alert and oriented to person place and time/ able to understand and follow all commands LABORATORY DATA: 06/10/20 19:31 06/10/20 20:36 06/11/20 06:23 06/10/20 19:31: Immature Granulocyte % (Auto) 0.5, Neutrophils (%) (Auto) 74.0H, Lymphocytes (%) (Auto) 16.9L, Monocytes (%) (Auto) 5.2H, Eosinophils (%) (Auto) 2.9, Basophils (%) (Auto) 0.5, Neutrophils # (Auto) 10.1H, Lymphocytes # (Auto) 2.3, Monocytes # (Auto) 0.7, Eosinophils # (Auto) 0.4, Basophils # (Auto) 0.1, Nucleated Red Blood Cells % (auto) 0.0 06/10/20 20:36: Anion Gap 7L, Glomerular Filtration Rate > 60.0, Calcium Level 8.7, Total Bilirubin 0.3, Direct Bilirubin 0.1, Aspartate Amino Transf (AST/SGOT) 19, Alanine Aminotransferase (ALT/SGPT) 30, Alkaline Phosphatase 71, Total Creatine Kinase 92, Creatine Kinase MB < 1.0, Creatine Kinase MB Relative Index 1.09, Troponin I < 0.02, Total Protein 6.7, Albumin 3.4, Albumin/Globulin Ratio 1.0L, Lipase 8793H, Human Chorionic Gonadotropin, Qual NEGATIVE IMAGING: Ultrasound of the liver; per discussion with Tracy Jolley, the patient has gallstones but the final report is pending. MICROBIOLOGY: Please see below. ASSESSMENT: Ms. Nadira Mantilla is a 29-year-old with a history of borderline personality disorder, hypertension and class III obesity who presented with complaints of abdominal pain and will be admitted for evaluation and management of acute pancreatitis. PLAN: 1. Acute Pancreatitis The patient has pancreatitis because she meets 2/3 of the Modified Lisa Criteria to diagnose pancreatitis : abdominal pain + elevated lipase Possible causes of this acute episode include:Hyperlipidemia, Ethanol, Gallstones or Autoimmune pancreatitis an Her calcium, LFTs and Alk P are wnl Harmless Acute Pancreatitis Score to rule out need for ICU admission for 1st episode of pancreatitis = 1 point = unable to r/o severe pancreatitis Ike's Score is 0 points = 1% predicted mortality Plan: admit to medical floor / NPO w IVF / f/u ETHO, lipid panel, UDS & liver US report / IV Toradol & morphine PRN for pain 2. Chronic HTN Plan: losartan, HCTZ and amlodipine 3. Borderline Personality Disorder (BPD) Plan: according to the patient she is taking escitalopram and lamotrigine for BPD 4. Class 5 Obesity BMI 50.4 complicates care Plan: f/u A1C / the patient can f/u w her PCP for a health care marketing manager consult, to discuss staring Saxenda which is indicated in patients with a BMI >27 with co- existing DM or HTN or dyslipidemia to help with weight control & referral to a Bariatric Surgeon / recommend cardiovascular exercise for 40 min 4-5 days a week DVT PROPHYLAXIS: SCDs DISPOSITION: home after more than 2 midnight's stay Home Medications Scheduled Amlodipine Besylate (Amlodipine Besylate) 10 Mg Tablet, 10 MG PO DAILY HAS NOT STARTED YET Escitalopram Oxalate (Lexapro) 20 Mg Tablet, 20 MG PO DAILY Ferrous Gluconate (Ferrous Gluconate) 324 Mg Tablet, 324 MG PO QID Lamotrigine (Lamotrigine) 25 Mg Tablet, 25 MG PO BID Lisinopril/Hydrochlorothiazide (Lisinopril-Hctz 20-25 mg Tab) 1 Each Tablet, 1 TAB PO DAILY Trazodone HCl (Trazodone HCl) 50 Mg Tablet, 50 MG PO QHS Allergies Uncoded Allergies: chlorine (Allergy, Intermediate, hives, 06/10/20) A-FIB/CHADSVASC A-FIB History Current/History of A-Fib/PAF?: No Current PO Anticoag Therapy: No THOMAS GAGE MD Jun 11, 2020 01:58
[2020-06-11 02:50] LABS: RSV AMPLIFICATION NEGATIVE (NEGATIVE)
[2020-06-11 03:15] VITALS: BP 136/88
[2020-06-11] MEDS: lamoTRIgine 25 MG TAB PO SCH ×3 (03:46→20:14)
[2020-06-11] MEDS: MORPHINE 2 MG/ML 1ML VIAL (J2270) IV PRN ×2 (03:47→16:15)
[2020-06-11 06:00] VITALS: BP_SYST 139; BP_DIAS 41; BP_DIAS 91
[2020-06-11 06:40] LABS: HEMOGLOBIN 11.7 g/dl (12.0-15.5); MEAN CORPUSCULAR HEMOGLOBIN 25.9 pg (27.0-33.0); MEAN CORPUSCULAR HGB CONC 31.6 g/dl (32.0-36.5); PLATELET COUNT, AUTOMATED 311 10^3/uL (150-450); RED BLOOD COUNT 4.51 10^6/uL (4.00-5.40); WHITE BLOOD COUNT 9.3 10^3/uL (4.0-10.0)
[2020-06-11 07:12] LABS: ALT/SGPT 27 U/L (12-78); BILIRUBIN,TOTAL 0.3 MG/DL (0.2-1.0); BLOOD UREA NITROGEN 11 MG/DL (7-18); CARBON DIOXIDE LEVEL 25 MEQ/L (21-32); CHLORIDE LEVEL 106 MEQ/L (98-107); CHOLESTEROL LEVEL 134 MG/DL (<200); CHOLESTEROL RISK RATIO 3.435 (<5); CREATININE FOR GFR 0.67 MG/DL (0.55-1.30); GLOMERULAR FILTRATION RATE > 60.0 (>60); GLUCOSE, FASTING 96 MG/DL (70-100); HDL CHOLESTEROL 39 MG/DL (>40); LDH LACTATE DEHYDROGENASE 169 U/L (84-246); LDL CHOLESTEROL 79 MG/DL (<100); NON-HDL-C 95 MG/DL; POTASSIUM SERUM 3.5 MEQ/L (3.5-5.1); SODIUM LEVEL 139 MEQ/L (136-145); TOTAL PROTEIN 6.5 GM/DL (6.4-8.2); TRIGLYCERIDES LEVEL 81 MG/DL (<150)
--- NOTE | 2020-06-11 08:12 | REP ---
INDICATION: RUQ pain into back. Repeat dictation. Preliminary report is provided at the time of the exam by christian MALLORY. COMPARISON: None. TECHNIQUE: Right upper quadrant sonography. FINDINGS: Scanning through the right upper quadrant of the abdomen demonstrates a a partially contracted gallbladder containing numerous gallstones ranging in size from a 0.3-1.0 cm. Gallbladder wall is not visibly thickened. There is tenderness to scanning over the gallbladder.. Common bile duct is normal measuring 0.4 cm in greatest diameter. No focal liver lesion is seen. Liver size is normal. No pancreatic abnormality is observed. No right renal abnormality is seen. There is no evidence of ascites. The right kidney measures 12.2 x 5.5 x 4.4 cm. IMPRESSION: Cholelithiasis.. <Electronically signed by Reno Rodriguez > 06/11/20 [id number]
--- NOTE | 2020-06-11 08:15 | REP ---
INDICATION: epigastric pain rad to back, gallstones, elev lipase/WBC. Repeat dictation. Preliminary report is provided at the time of the exam by christian MALLORY. COMPARISON: None. TECHNIQUE: Helical scanning was acquired and 4 mm axial images are re-formatted. Coronal and sagittal MPR images were generated and reviewed. The contrast enhancement dose is 100 mL of intravenous Isovue 370. FINDINGS: Preliminary digital head of product radiograph is unremarkable. On axial CT images, the lung bases are clear. The liver and the spleen are normal in size homogeneous in texture. Cholelithiasis is seen. Gallbladder is partially contracted. Normal adrenal glands are observed. There is mild diffuse peripancreatic and intrapancreatic edema consistent with acute pancreatitis. There is no evidence of necrosis, abscess, pseudocyst, or abnormal fluid collection. The kidneys enhance symmetrically and are morphologically intact. Normal appendix is seen in the right lower quadrant. Small and large bowel loops are unremarkable in the abdomen and pelvis. No uterine or ovarian abnormality is seen. Urinary bladder is unremarkable. No abdominal wall defect is seen. IMPRESSION: Findings consistent with acute pancreatitis. No complication is seen. Cholelithiasis is noted. <Electronically signed by Reno Rodriguez > 06/11/20 [id number]
[2020-06-11] MEDS ORDERED: ONDANSETRON 4MG/2ML VIAL IV PRN (08:30)
[2020-06-11] MEDS: KETOROLAC 30 MG/ML 1ML VIAL IV PRN ×2 (08:40→20:50)
[2020-06-11] MEDS: ESCITALOPRAM OXALATE 10 MG TAB (LEXAPRO) PO SCH (09:40)
[2020-06-11] MEDS: amLODIPine 10 MG TAB PO SCH (09:40)
[2020-06-11] MEDS: hydroCHLOROthiazide 12.5 MG CAPSULE PO SCH (09:40)
[2020-06-11] MEDS: FERROUS GLUCONATE 324 MG TAB PO SCH ×4 (09:41→20:13)
[2020-06-11] MEDS: LOSARTAN 25 MG TAB PO SCH (09:41)
[2020-06-11 09:53] LABS: HEMOGLOBIN A1c 5.5 %
--- NOTE | 2020-06-11 13:32 | ECGEPIP ---
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
[2020-06-11 14:00] VITALS: BP 139/84
[2020-06-11] MEDS: traZODone 50 MG TAB PO SCH (20:13)
--- NOTE | 2020-06-11 20:23 | IPNPDOC ---
Subjective Date Seen The patient was seen on 06/11/20. Subjective Chief Complaint/HPI Ms. Walters is a 29 year old female with obesity here with pancreatitis. No events overnight. This morning, she still had nausea, abdominal pain, and poor appetite. Will continue current therapy at this time. Objective Physical Examination General Exam: Positive: Alert, Cooperative Eye Exam: Positive: EOMI; Negative: Sclera icteric ENT Exam: Positive: Atraumatic Neck Exam: Positive: Supple Chest Exam: Positive: Clear to auscultation; Negative: Rales, Rhonchi, Wheezing Heart Exam: Positive: Rate Normal, Regular Rhythm Abdomen Exam: Positive: Normal bowel sounds, Soft, Tenderness Extremity Exam: Negative: Edema Neuro Exam: Positive: Cranial Nerves 3-12 NL Psych Exam: Positive: Mental status NL, Mood NL Assessment /Plan Assessment Ms. Walters is a 29 year old female with obesity here with pancreatitis. She will be kept NPO and have aggressive hydration. Will restart diet when appetite returns. Plan/VTE VTE Prophylaxis Ordered?: Yes Plan 1. Acute pancreatitis -Abdominal pain with elevated lipase of 8793 -Aggressive IVF and NPO -Restart diet when appetite returns 2. Hypertension -BP controlled -Continue amlodipine, losartan, and HCTZ 3. Borderline personality disorder -Continue Escitalopram, Lamotrigine, and Trazodone 4. Class 5 obesity -Will need to follow up with PCP about weight loss strategies 5. DVT ppx -SCD VS, I&O, 24H, Fishbone Vital Signs/I&O Vital Signs Date Time Temp Pulse Resp B/P (MAP) Pulse Ox O2 Delivery O2 Flow Rate FiO2 06/11/20 16:25 16 06/11/20 14:00 98.1 81 139/84 (102) 98 Room Air I&O- Last 24 Hours up to 6 AM 06/11/20 06:00 Intake Total 1875 ml Output Total 400 ml Balance 1475 ml Laboratory Data 24H LABS Laboratory Tests 2 06/10/20 20:36: Anion Gap 7L, Glomerular Filtration Rate > 60.0, Calcium Level 8.7, Total Bilirubin 0.3, Direct Bilirubin 0.1, Aspartate Amino Transf (AST/SGOT) 19, Alanine Aminotransferase (ALT/SGPT) 30, Alkaline Phosphatase 71, Total Creatine Kinase 92, Creatine Kinase MB < 1.0, Creatine Kinase MB Relative Index 1.09, Troponin I < 0.02, Total Protein 6.7, Albumin 3.4, Albumin/Globulin Ratio 1.0L, Lipase 8793H, Human Chorionic Gonadotropin, Qual NEGATIVE 06/11/20 02:06: Coronavirus (COVID-19)(PCR) NEGATIVE, Influenza Type A (RT-PCR) NEGATIVE, Influenza Type B (RT-PCR) NEGATIVE, Respiratory Syncytial Virus (PCR) NEGATIVE 06/11/20 06:23: Anion Gap 8, Glomerular Filtration Rate > 60.0, Calcium Level 8.0L, Total Bilirubin 0.3, Aspartate Amino Transf (AST/SGOT) 17, Alanine Aminotransferase (ALT/SGPT) 27, Alkaline Phosphatase 67, Total Protein 6.5, Albumin 3.0L, Albumin/Globulin Ratio 0.9L, Nucleated Red Blood Cells % (auto) 0.0, Estimated Mean Plasma Glucose 111H, Hemoglobin A1c 5.5, Lactate Dehydrogenase 169, Triglycerides Level 81, Total Cholesterol 134, LDL Cholesterol 79, Non-HDL Cholesterol (LDL + VLDL) 95, Total HDL Cholesterol 39L, Cholesterol/HDL Ratio 3.435 CBC/BMP Laboratory Tests 06/10/20 20:36 06/11/20 06:23 ALYSON ALEX DO Jun 11, 2020 20:23
[2020-06-11 22:00] VITALS: BP 164/94
[2020-06-11] MEDS: MOM 30ML SUSPENSION UDC PO PRN (22:23)
[2020-06-12] MEDS: ACETAMINOPHEN TAB 650MG DOSE (2X325MG) PO PRN ×3 (03:53→12:36)
[2020-06-12] MEDS: NS 1,000 ML IV SCH (05:57)
[2020-06-12 06:00] VITALS: BP 138/92
[2020-06-12 06:04] LABS: HEMATOCRIT 37.5 % (36.0-47.0); HEMOGLOBIN 11.5 g/dl (12.0-15.5); MEAN CORPUSCULAR HEMOGLOBIN 24.7 pg (27.0-33.0); MEAN CORPUSCULAR HGB CONC 30.7 g/dl (32.0-36.5); MEAN CORPUSCULAR VOLUME 80.6 fl (80.0-96.0); PLATELET COUNT, AUTOMATED 331 10^3/uL (150-450); RED BLOOD COUNT 4.65 10^6/uL (4.00-5.40); WHITE BLOOD COUNT 12.9 10^3/uL (4.0-10.0)
[2020-06-12 06:23] LABS: BLOOD UREA NITROGEN 6 MG/DL (7-18); CALCIUM LEVEL 8.7 MG/DL (8.5-10.1); CARBON DIOXIDE LEVEL 23 MEQ/L (21-32); CHLORIDE LEVEL 105 MEQ/L (98-107); CREATININE FOR GFR 0.59 MG/DL (0.55-1.30); GLOMERULAR FILTRATION RATE > 60.0 (>60); GLUCOSE, FASTING 76 MG/DL (70-100); LIPASE 756 U/L (73-393); POTASSIUM SERUM 3.6 MEQ/L (3.5-5.1); SODIUM LEVEL 138 MEQ/L (136-145)
[2020-06-12] MEDS: FERROUS GLUCONATE 324 MG TAB PO SCH ×2 (08:27→12:36)
[2020-06-12] MEDS: hydroCHLOROthiazide 12.5 MG CAPSULE PO SCH (08:27)
[2020-06-12] MEDS: MOM 30ML SUSPENSION UDC PO PRN (08:27)
[2020-06-12 08:28] VITALS: BP 160/100
[2020-06-12] MEDS: amLODIPine 10 MG TAB PO SCH (08:28)
[2020-06-12] MEDS: LOSARTAN 25 MG TAB PO SCH (08:28)
[2020-06-12] MEDS: lamoTRIgine 25 MG TAB PO SCH (08:28)
[2020-06-12] MEDS: ESCITALOPRAM OXALATE 10 MG TAB (LEXAPRO) PO SCH (08:29)
[2020-06-12] MEDS ORDERED: DOCUSATE SODIUM 100MG CAPSULE PO SCH (09:00)
[2020-06-12] MEDS ORDERED: INFLUENZA QUADRIVALENT PF VACCINE 0.5ML SYRINGE IM ONE (09:00)
[2020-06-12 10:23] VITALS: BP 162/94
[2020-06-12 12:00] VITALS: BP 152/98
[2020-06-12 14:00] VITALS: BP 158/100
--- NOTE | 2020-06-13 00:15 | DS.PDOC ---
Discharge Summary General Date of Admission Jun 11, 2020 at 01:20 Date of Discharge Jun 12, 2020 Attending Physician: ALYSON ALEX DO Discharge Summary PROCEDURES PERFORMED DURING STAY: None. ADMITTING DIAGNOSES: 1. Acute Pancreatitis 2. Chronic HTN 3. Borderline Personality Disorder (BPD) 4. Class 5 Obesity DISCHARGE DIAGNOSES: 1. Acute Pancreatitis 2. Chronic HTN 3. Borderline Personality Disorder (BPD) 4. Class 5 Obesity COMPLICATIONS/CHIEF COMPLAINT: Pancreatits. HISTORY OF PRESENT ILLNESS: Mrs. Lou is a 29 year old female who presents with epigastric abdominal pain that started on Monday evening. The pain was dull and throbbing. She scored the pain 8/10. Radiated towards the back. This is the first time she has ever had this pain. In the ED, she was found to have pancreatitis. HOSPITAL COURSE: She was treated with aggressive IVF and kept NPO. Lipase dropped from 8793 to 756. Triglycerides were within normal at 81. HbA1c was 5.5. Imaging demonstrated cholelithiasis, but AST and ALT were not elevated. Unclear etiology, but the following day, she had a good appetite. She tolerated a liquid diet and a solid diet. She denied any chest pain, dyspnea, abdominal pain, or dysuria. She felt ready for home and was subsequently discharged DISCHARGE MEDICATIONS: Please see below. ALLERGIES: Please see below. PHYSICAL EXAMINATION ON DISCHARGE: VITAL SIGNS: Please see below. GENERAL: Comfortable, in no apparent distress HEENT: Head normocephalic, atraumatic, EOMI, sclera clear NECK: Supple CARDIOVASCULAR EXAMINATION: Regular rate and rhythm RESPIRATORY EXAMINATION: Lungs clear to auscultation bilaterally ABDOMINAL EXAMINATION: Soft, obese, non-tender, normal bowel sounds EXTREMITIES: Mild bilateral pitting edema SKIN: Warm and dry NEUROLOGICAL EXAMINATION: CN 3-12 grossly intact PSYCHIATRIC EXAMINATION: Normal mood and affect LABORATORY DATA: Please see below. IMAGING: CT abd/pelvis with IV contrast only Findings consistent with acute pancreatitis. No complication is seen. Cholelithiasis is noted. US gallbladder Cholelithiasis. PROGNOSIS: Good ACTIVITY: As tolerated. DIET: As tolerated DISCHARGE PLAN: Home DISPOSITION: Home, Self-Care. DISCHARGE INSTRUCTIONS: 1. Follow up with your PCP within 1 week DISCHARGE CONDITION: Stable. Total time spent on discharge planning, discharge summary, and medication reconciliation: 35 minutes Vital Signs/I&Os Vital Signs Date Time Temp Pulse Resp B/P (MAP) Pulse Ox O2 Delivery O2 Flow Rate FiO2 06/12/20 14:00 99.1 94 18 158/100 (119) 100 Room Air I&O- Last 24 Hours up to 6 AM 06/13/20 06:00 Intake Total 120 ml Output Total 0 ml Balance 120 ml Laboratory Data Labs 24H Laboratory Tests 2 06/12/20 05:39: Nucleated Red Blood Cells % (auto) 0.0, Anion Gap 10, Glomerular Filtration Rate > 60.0, Calcium Level 8.7, Lipase 756H CBC/BMP Laboratory Tests 06/12/20 05:39 Microbiology Microbiology 06/12/20 Blood Culture, Received Pending 06/12/20 Blood Culture, Received Pending Discharge Medications Scheduled Amlodipine Besylate (Amlodipine Besylate) 10 Mg Tablet, 10 MG PO DAILY, (Reported) HAS NOT STARTED YET Escitalopram Oxalate (Lexapro) 20 Mg Tablet, 20 MG PO DAILY, (Reported) Ferrous Gluconate (Ferrous Gluconate) 324 Mg Tablet, 324 MG PO QID, (Reported) Lamotrigine (Lamotrigine) 25 Mg Tablet, 25 MG PO BID, (Reported) Lisinopril/Hydrochlorothiazide (Lisinopril-Hctz 20-25 mg Tab) 1 Each Tablet, 1 TAB PO DAILY, (Reported) Trazodone HCl (Trazodone HCl) 50 Mg Tablet, 50 MG PO QHS, (Reported) Allergies Uncoded Allergies: chlorine (Allergy, Intermediate, hives, 06/10/20) ALYSON ALEX DO Jun 13, 2020 00:15
== END 2020-06-12 16:04 | disposition home or self-care (01) | DRG 282 ==
LOC: M ED 17:53 → M ED INP 06-11 01:20 → ENRESERV 06-11 02:54 → M MSPAV 06-11 03:07
PROVIDERS: ADMIT Internal Medicine; ATTEND Internal Medicine
DX: K85.90 Acute pancreatitis without necrosis or infection, unspecified (principal); Z68.43 Body mass index [BMI] 50.0-59.9, adult; F60.3 Borderline personality disorder; E66.9 Obesity, unspecified; Z79.899 Other long term (current) drug therapy; Z88.8 Allergy status to other drugs, medicaments and biological substances; Z20.828 Contact with and (suspected) exposure to other viral communicable diseases

== ENCOUNTER 2020-10-26 02:15 | Emergency (ER) | payer MEDICAID, OTHER, SELFPAY ==
[~2020-10-26] VITALS: Ht 157.5 cm; Wt 118.6 kg
[~2020-10-26 02:15] MED LIST changes: +AMLO1TAB25 PO; +ESCI20TA16 PO; +FERR32TA PO; +LAMO25TA4 PO; +LEXA1TAB2 PO; +LISI20TA20 PO; +TRAZ-186 PO; +TRAZ-252 PO; +ZEST1TAB3 PO
[2020-10-26] MEDS ORDERED: ARIP1TAB4 PO (02:25)
[2020-10-26] MEDS ORDERED: ONDANSETRON 4MG/2ML VIAL IV ONE ×2 (02:55→05:00)
[2020-10-26] MEDS ORDERED: MORPHINE 4 MG/ML 1ML VIAL/SYRINGE (J2270) IV ONE ×3 (02:55→06:35)
--- NOTE | 2020-10-26 04:06 | REPVR ---
PROCEDURE INFORMATION: Exam: US Abdomen, Limited; Right Upper Quadrant Exam date and time: 10/26/2020 3:18 AM Age: 29 years old Clinical indication: Abdominal pain; Epigastric; Additional info: Eval gall bladder, ruq pain TECHNIQUE: Imaging protocol: US abdomen. Real time ultrasound with image documentation. Limited exam focused on the right upper quadrant. COMPARISON: GALLBLADDER US 06/10/2020 7:32 PM FINDINGS: Liver: Normal. No masses. Gallbladder: Cholelithiasis and biliary sludge. Gallbladder is mildly distended. Mild thickening of gallbladder wall measuring to 3 mm. Positive sonographic Lemus sign is reported. Common bile duct: Common bile duct is dilated to 8 mm. Pancreas: Visualized pancreas is unremarkable. Right kidney: Normal. No mass. No hydronephrosis. IMPRESSION: Findings suggestive of acute cholecystitis as discussed above. Mildly dilated common bile duct. Electronically signed by: Nicholas Carrero On 10/26/2020 04:05:45 AM
[2020-10-26 04:09] LABS: HEMATOCRIT 40.2 % (36.0-47.0); HEMOGLOBIN 12.9 g/dl (12.0-15.5); MEAN CORPUSCULAR HGB CONC 32.1 g/dl (32.0-36.5); MEAN CORPUSCULAR VOLUME 87.4 fl (80.0-96.0); PLATELET COUNT, AUTOMATED 331 10^3/uL (150-450); WHITE BLOOD COUNT 12.1 10^3/uL (4.0-10.0)
[2020-10-26 05:29] LABS: HCG, SERUM QUALITATIVE NEGATIVE (NEGATIVE)
[2020-10-26 05:31] LABS: ALBUMIN 3.8 GM/DL (3.2-5.2); ALT/SGPT 23 U/L (12-78); BILIRUBIN,TOTAL 0.3 MG/DL (0.2-1.0); BLOOD UREA NITROGEN 9 MG/DL (7-18); CALCIUM LEVEL 9.3 MG/DL (8.5-10.1); CARBON DIOXIDE LEVEL 25 MEQ/L (21-32); CHLORIDE LEVEL 105 MEQ/L (98-107); CREATININE FOR GFR 0.58 MG/DL (0.55-1.30); GLOMERULAR FILTRATION RATE > 60.0 (>60); GLUCOSE, FASTING 122 MG/DL (70-100); LIPASE 38 U/L (73-393); POTASSIUM SERUM 3.8 MEQ/L (3.5-5.1); SODIUM LEVEL 139 MEQ/L (136-145)
[2020-10-26] MEDS ORDERED: PIPERACILLIN/TAZOBACTAM SOD 3.375 GM in D5W MINI-BAG PLUS 50 ML IV ONE (05:40)
[2020-10-26 06:41] LABS: RSV AMPLIFICATION NEGATIVE (NEGATIVE)
[2020-10-26] MEDS ORDERED: AUGM875T28 PO (07:19)
[2020-10-26] MEDS ORDERED: AUGMENTIN 875 MG TAB PO ONE (07:20)
[2020-10-26] MEDS ORDERED: PERC5TAB12 PO (07:20)
[2020-10-26 07:35] VITALS: BP 142/72
--- NOTE | 2020-10-26 12:20 | ER ---
ER CONSULTATION DATE: 10/26/2020 CHIEF COMPLAINT: Abdominal pain. HISTORY OF PRESENT ILLNESS: Patient is a 29-year-old female presents with right upper pole pain that started just after midnight and it has been getting progressively worse. She came into the Emergency Room in the middle of the night, found to have acute cholecystitis. I came in to evaluate her this morning. Her pain is controlled with pain meds. No nausea or vomiting, no fevers or chills. She has had prior symptoms to this in the past, but has never been diagnosed. No recent travel or trauma to the abdomen. No changes in diet or medications. PAST MEDICAL HISTORY: 1. Hypertension. 2. Hyperlipidemia. PAST SURGICAL HISTORY: Two sections. ALLERGIES: None. HOME MEDICATIONS: Please see Med Rec. SOCIAL HISTORY: Denies drug, alcohol or tobacco abuse. FAMILY HISTORY: Noncontributory. REVIEW OF SYSTEMS: Pertinent positives as per the HPI. PHYSICAL EXAMINATION: General: A&O times 3, in no acute distress. Vital signs: Temp 97.5, pulse 58, respirations 20, blood pressure 142/72, pulse ox 97% on room air. HEENT: Pupils equally round and reactive to light and accommodation. Heart: S1 and S2 regular rate and rhythm. Lungs: Clear to auscultation bilaterally. Abdomen: Soft, tender in the right upper quadrant, localized guarding, no rigidity. Extremities: No clubbing, cyanosis or edema. LABORATORY DATA: White count 12.1, hemoglobin 12.9, platelets 331. Potassium 3.8, creatinine 0.58. LFTs all within normal limits. IMAGING: Ultrasound of the abdomen came back positive for cholelithiasis and biliary sludge with a mildly thickened wall at 3 mm, positive sonographic Lemus's sign. ASSESSMENT AND RECOMMENDATION: Patient is a 29-year-old female with acute calculous cholecystitis. Recommendation is to go home at this point. She is comfortable enough and prefers that method rather than having the surgery completed right now. We will plan to send her home with a days worth of pain pills as well as some antibiotics for a week. She can follow up with me in the office as an outpatient and we will plan for elective outpatient surgery in at least a couple of weeks. All of her questions are answered. She will call my office with any questions.
== END 2020-10-26 07:39 | disposition home or self-care (01) ==
LOC: M ED 02:15
DX: K80.00 Calculus of gallbladder with acute cholecystitis without obstruction (principal); K83.8 Other specified diseases of biliary tract; I10 Essential (primary) hypertension; E78.5 Hyperlipidemia, unspecified; Z87.19 Personal history of other diseases of the digestive system; F17.210 Nicotine dependence, cigarettes, uncomplicated; Z91.048 Other nonmedicinal substance allergy status; Z79.899 Other long term (current) drug therapy
CPT/HCPCS: 36415; 76705; 80053; 81001; 83690; 84703; 85027; 87631; 96365; 96375; 96376; 99284; J2270; J2405; J2543

== ENCOUNTER 2020-11-02 09:07 | Emergency (ER) | payer MEDICAID, OTHER, SELFPAY ==
[~2020-11-02] VITALS: Ht 160 cm; Wt 117.1 kg
[~2020-11-02 09:07] MED LIST changes: +ARIP1TAB4 PO; +AUGM875T28 PO; +PERC5TAB12 PO
[2020-11-02 11:45] VITALS: BP 199/109
[2020-11-02] MEDS ORDERED: KETOROLAC 30 MG/ML 1ML VIAL IV ONE (12:05)
[2020-11-02] MEDS ORDERED: ONDANSETRON 4 MG ORAL DISINTEGRATING TAB PO ONE (12:30)
[2020-11-02] MEDS ORDERED: KETOROLAC 60MG 2ML VIAL IM ONE (12:30)
--- NOTE | 2020-11-02 13:12 | REP ---
INDICATION: RUQ abdominal pain x 1 week, increased today COMPARISON: None. TECHNIQUE: Real time jefferson scale ultrasound examination using curved array transducer. FINDINGS: Liver is normal in contour, size, and echogenicity without focal hepatic lesions identified. Pancreas is incompletely evaluated due to interposed bowel gas. The gallbladder demonstrates layering sludge along with gallstones and mild wall thickening to 3.6 mm. Sonographic Lemus's sign was noted during examination. No biliary ductal dilatation is appreciated and the common bile duct measures 3.9 mm diameter. Right kidney is normal in reniform shape without hydronephrosis and measures 12.4 x 6.2 x 4.7 cm. No ascites in the visualized right upper quadrant. IMPRESSION: Cholelithiasis. Early acute cholecystitis cannot be excluded and warrants clinical observation. <Electronically signed by Hayden Cronin > 11/02/20 [id number]
[2020-11-02 14:01] LABS: BASO # 0.1 10^3/uL (0.0-0.2); BASO % 0.9 % (0.0-1.0); EOS # 0.5 10^3/uL (0.0-0.5); EOS % 4.4 % (0.0-3.0); LYMPH # 3.2 10^3/uL (1.5-5.0); LYMPH % 31.1 % (24.0-44.0); MEAN CORPUSCULAR HEMOGLOBIN 28.2 pg (27.0-33.0); MEAN CORPUSCULAR HGB CONC 32.5 g/dl (32.0-36.5); MEAN CORPUSCULAR VOLUME 86.8 fl (80.0-96.0); MONO # 0.4 10^3/uL (0.0-0.8); MONO % 3.7 % (2.0-8.0); NEUTROPHILS # 6.2 10^3/uL (1.5-8.5); NEUTROPHILS % 59.4 % (36.0-66.0); PLATELET COUNT, AUTOMATED 315 10^3/uL (150-450); RED BLOOD COUNT 4.61 10^6/uL (4.00-5.40); WHITE BLOOD COUNT 10.4 10^3/uL (4.0-10.0)
[2020-11-02 14:27] LABS: ALBUMIN 3.6 GM/DL (3.2-5.2); ALT/SGPT 21 U/L (12-78); BILIRUBIN,DIRECT < 0.1 MG/DL (0.0-0.2); BILIRUBIN,TOTAL 0.3 MG/DL (0.2-1.0); BLOOD UREA NITROGEN 11 MG/DL (7-18); CALCIUM LEVEL 9.4 MG/DL (8.5-10.1); CARBON DIOXIDE LEVEL 26 MEQ/L (21-32); CHLORIDE LEVEL 109 MEQ/L (98-107); CREATININE FOR GFR 0.58 MG/DL (0.55-1.30); GLOMERULAR FILTRATION RATE > 60.0 (>60); GLUCOSE, FASTING 82 MG/DL (70-100); LIPASE 41 U/L (73-393); SODIUM LEVEL 141 MEQ/L (136-145); TOTAL PROTEIN 7.1 GM/DL (6.4-8.2)
[2020-11-02] MEDS ORDERED: cefTRIAXone SOD 2 GM VIAL (J0696 PER 250MG) IM ONE (14:55)
[2020-11-02] MEDS ORDERED: LIDOCAINE 1% SDV 5ML VIAL DILUENT ONE (14:55)
[2020-11-02] MEDS ORDERED: AUGM500T34 PO (14:57)
== END 2020-11-02 15:16 | disposition home or self-care (01) ==
LOC: M ED 09:07
DX: K80.00 Calculus of gallbladder with acute cholecystitis without obstruction (principal); F17.200 Nicotine dependence, unspecified, uncomplicated; Z91.048 Other nonmedicinal substance allergy status; Z79.899 Other long term (current) drug therapy; Z79.2 Long term (current) use of antibiotics
CPT/HCPCS: 36415; 76705; 80048; 80076; 81001; 83690; 85025; 87086; 96372; 99283; J0696; J1885; Q0162

== ENCOUNTER → 2020-11-26 | Outpatient (CLI) | payer OTHER ==
[~2020-11-26] MED LIST changes: +AUGM500T34 PO; +VITMTA PO
== END ==
LOC: M LABSMTC 10:09
PROVIDERS: ATTEND Anesthesiology
DX: Z01.818 Encounter for other preprocedural examination (principal); Z11.52 Encounter for screening for COVID-19

== ENCOUNTER → 2020-11-30 | Outpatient (CLI) | payer OTHER ==
[2020-11-30 12:37] LABS: HEMATOCRIT 40.7 % (36.0-47.0); HEMOGLOBIN 12.9 g/dl (12.0-15.5); MEAN CORPUSCULAR HEMOGLOBIN 27.9 pg (27.0-33.0); MEAN CORPUSCULAR HGB CONC 31.7 g/dl (32.0-36.5); MEAN CORPUSCULAR VOLUME 87.9 fl (80.0-96.0); PLATELET COUNT, AUTOMATED 287 10^3/uL (150-450); RED BLOOD COUNT 4.63 10^6/uL (4.00-5.40)
--- NOTE | 2020-11-30 21:01 | ECGEPIP ---
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
== END ==
LOC: M LAB 11:39
PROVIDERS: ATTEND Anesthesiology
DX: D64.9 Anemia, unspecified (principal)

== ENCOUNTER → 2020-12-01 | Day surgery (SDC) | payer OTHER ==
[~2020-12-01] VITALS: Ht 157.5 cm; Wt 123.8 kg
[~2020-12-01] MED LIST changes: +BUPIVACAINE/EPIN 0.25% 30 ML VIAL As Ordered ONE; +LR 1,000 ML IV ONE; +ceFAZolin SOD 1 GM in D5W MINI-BAG PLUS 50 ML IV ONE
[2020-12-01 10:54] LABS: HEMATOCRIT 42.6 % (36.0-47.0); HEMOGLOBIN 13.6 g/dl (12.0-15.5); MEAN CORPUSCULAR HEMOGLOBIN 28.2 pg (27.0-33.0); MEAN CORPUSCULAR HGB CONC 31.9 g/dl (32.0-36.5); MEAN CORPUSCULAR VOLUME 88.4 fl (80.0-96.0); PLATELET COUNT, AUTOMATED 294 10^3/uL (150-450); RED BLOOD COUNT 4.82 10^6/uL (4.00-5.40); WHITE BLOOD COUNT 8.8 10^3/uL (4.0-10.0)
== END | disposition home or self-care (01) ==
LOC: M SDC 10:16
PROVIDERS: ATTEND Surgery
DX: K80.20 Calculus of gallbladder without cholecystitis without obstruction (principal); Z53.09 Procedure and treatment not carried out because of other contraindication; Z33.1 Pregnant state, incidental

== ENCOUNTER → 2020-12-07 | Outpatient (REF) | payer OTHER ==
[~2020-12-07] MED LIST changes: -BUPIVACAINE/EPIN 0.25% 30 ML VIAL As Ordered ONE; -LR 1,000 ML IV ONE; -ceFAZolin SOD 1 GM in D5W MINI-BAG PLUS 50 ML IV ONE
[2020-12-07 17:25] LABS: HEMATOCRIT 42.3 % (36.0-47.0); HEMOGLOBIN 13.2 g/dl (12.0-15.5); MEAN CORPUSCULAR HEMOGLOBIN 28.3 pg (27.0-33.0); MEAN CORPUSCULAR HGB CONC 31.2 g/dl (32.0-36.5); MEAN CORPUSCULAR VOLUME 90.6 fl (80.0-96.0); PLATELET COUNT, AUTOMATED 329 10^3/uL (150-450); RED BLOOD COUNT 4.67 10^6/uL (4.00-5.40); WHITE BLOOD COUNT 10.4 10^3/uL (4.0-10.0)
[2020-12-07 17:46] LABS: CREATININE,RANDOM URINE 24.3 MG/DL; TOTAL PROTEIN,RANDOM URINE < 5.0 MG/DL (0.0-12.0)
[2020-12-07 18:35] LABS: ALT/SGPT 34 U/L (12-78); BILIRUBIN,TOTAL 0.4 MG/DL (0.2-1.0); CREATININE FOR GFR 0.64 MG/DL (0.55-1.30); GLOMERULAR FILTRATION RATE > 60.0 (>60); HCG, SERUM QUANTITATIVE 3818 MIU/ML; HEPATITIS C VIRUS ABY INDEX < 0.0 INDEX (<0.8); HIV 1&2 SCREEN CENTAUR NEGATIVE (NEGATIVE); LDH LACTATE DEHYDROGENASE 196 U/L (84-246); URIC ACID 5.4 MG/DL (2.6-6.0)
[2020-12-07 19:06] LABS: CHLAMYDIA DNA AMPLIFICATION NEGATIVE (NEGATIVE); GC DNA AMPLIFICATION NEGATIVE (NEGATIVE)
== END ==
LOC: M PLALAB 15:22
PROVIDERS: ATTEND Obstetrics & Gynecology
DX: O10.911 Unspecified pre-existing hypertension complicating pregnancy, first trimester (principal); Z3A.00 Weeks of gestation of pregnancy not specified

== ENCOUNTER → 2020-12-14 | Outpatient (REF) | payer OTHER | LOC: M PLALAB 14:37 | PROVIDERS: ATTEND Specialist | DX: N92.6 Irregular menstruation, unspecified (principal) ==

== ENCOUNTER → 2021-02-24 | Outpatient (CLI) | payer OTHER ==
[2021-02-24 15:02] LABS: HEMOGLOBIN A1c 5.4 %
== END ==
LOC: M PLALAB 08:31
PROVIDERS: ATTEND Advanced Practice Midwife
DX: Z36.89 Encounter for other specified antenatal screening (principal); Z3A.09 9 weeks gestation of pregnancy

== ENCOUNTER 2021-03-05 10:02 | Emergency (ER) | payer OTHER, MEDICAID ==
[~2021-03-05] VITALS: Ht 157.5 cm; Wt 116.3 kg
[2021-03-05 10:03] VITALS: BP 142/71
--- NOTE | 2021-03-05 11:25 | REP ---
INDICATION: abd pain. COMPARISON: None. TECHNIQUE: Real-time sonographic evaluation of gravid uterus performed. FINDINGS: The estimated gestational age is reportedly 17 weeks 4 days, EDC 08/09/2021. There is a single living intrauterine gestation. heart rate 140 beats per minute. position cephalic. Placenta posterior and grade 0 with no previa or abruption. Amniotic fluid appears within normal limits. SD ratio umbilical artery 4.33, RI 0.77. Cervix is closed and measures 3.7 cm in length. Contractions were noted in the lower uterine segment during scanning. IMPRESSION: Single living intrauterine gestation as discussed above, with no evidence of placenta previa or abruption. Normal amniotic fluid. <Electronically signed by Jose Martin Galo > 03/05/21 1126
[2021-03-05 12:19] LABS: BASO % 0.4 % (0.0-1.0); EOS # 0.4 10^3/uL (0.0-0.5); EOS % 3.8 % (0.0-3.0); HEMATOCRIT 43.9 % (36.0-47.0); HEMOGLOBIN 14.4 g/dl (12.0-15.5); LYMPH # 2.3 10^3/uL (1.5-5.0); LYMPH % 23.9 % (24.0-44.0); MEAN CORPUSCULAR HEMOGLOBIN 29.7 pg (27.0-33.0); MEAN CORPUSCULAR HGB CONC 32.8 g/dl (32.0-36.5); MEAN CORPUSCULAR VOLUME 90.5 fl (80.0-96.0); MONO # 0.2 10^3/uL (0.0-0.8); MONO % 2.5 % (2.0-8.0); NEUTROPHILS # 6.7 10^3/uL (1.5-8.5); NEUTROPHILS % 69.1 % (36.0-66.0); PLATELET COUNT, AUTOMATED 268 10^3/uL (150-450); RED BLOOD COUNT 4.85 10^6/uL (4.00-5.40); WHITE BLOOD COUNT 9.6 10^3/uL (4.0-10.0)
[2021-03-05 12:38] LABS: BLOOD UREA NITROGEN 7 MG/DL (7-18); CALCIUM LEVEL 9.5 MG/DL (8.5-10.1); CARBON DIOXIDE LEVEL 24 MEQ/L (21-32); CHLORIDE LEVEL 107 MEQ/L (98-107); CREATININE FOR GFR 0.54 MG/DL (0.55-1.30); GLOMERULAR FILTRATION RATE > 60.0 (>60); GLUCOSE, FASTING 75 MG/DL (70-100); POTASSIUM SERUM 3.7 MEQ/L (3.5-5.1); SODIUM LEVEL 137 MEQ/L (136-145)
[2021-03-05] MEDS ORDERED: ACETAMINOPHEN TAB 650MG DOSE (2X325MG) PO ONE (13:10)
[2021-03-05] MEDS ORDERED: NS 1,000 ML IV ONE (13:15)
[2021-03-05] MEDS ORDERED: KETOROLAC 30 MG/ML 1ML VIAL IV ONE (13:25)
--- NOTE | 2021-03-05 14:30 | REP ---
INDICATION: low back pain/hx gallstones. COMPARISON: Comparison is made with CT images from June 10, 2020. Comparison right upper quadrant sonography is from November 02, 2020. TECHNIQUE: Complete abdominal sonography. FINDINGS: Scanning through the right upper quadrant of the abdomen demonstrates multiple shadowing gallstones within the gallbladder measuring up to 1.6 cm in diameter. No intrahepatic ductal dilation is seen. Common bile duct is normal measuring 0.3 cm in greatest diameter. No focal liver lesion is seen. Pancreas is unremarkable. Spleen is normal in size measuring 10.7 cm in greatest diameter and homogeneous. There is no evidence of ascites. Renal cortical echogenicity pattern is normal in contours are smooth. No hydronephrosis, cyst, or mass is seen in either kidney. Right renal dimensions are 9.2 x 10.7 x 3.8 cm. The left kidney measures 12.7 x 5.8 x 3.9 cm. IMPRESSION: Cholelithiasis. Otherwise negative complete abdominal sonography. <Electronically signed by Reno Rodriguez > 03/05/21 [id number]
[2021-03-05 14:32] LABS: ALBUMIN 3.6 GM/DL (3.2-5.2); ALT/SGPT 48 U/L (12-78); BILIRUBIN,DIRECT 0.1 MG/DL (0.0-0.2); BILIRUBIN,TOTAL 0.3 MG/DL (0.2-1.0); LIPASE 42 U/L (73-393); TOTAL PROTEIN 7.8 GM/DL (6.4-8.2)
[2021-03-05 15:14] LABS: GC DNA AMPLIFICATION NEGATIVE (NEGATIVE)
== END 2021-03-05 15:57 | disposition home or self-care (01) ==
LOC: M ED 10:02
DX: O26.892 Other specified pregnancy related conditions, second trimester (principal); M54.5 Low back pain; O10.012 Pre-existing essential hypertension complicating pregnancy, second trimester; O99.342 Other mental disorders complicating pregnancy, second trimester; F60.3 Borderline personality disorder; Z3A.17 17 weeks gestation of pregnancy; Z87.59 Personal history of other complications of pregnancy, childbirth and the puerperium; Z87.19 Personal history of other diseases of the digestive system; O99.332 Smoking (tobacco) complicating pregnancy, second trimester; F17.210 Nicotine dependence, cigarettes, uncomplicated; Z91.048 Other nonmedicinal substance allergy status; Z79.899 Other long term (current) drug therapy
CPT/HCPCS: 76700; 76815; 80048; 80076; 81001; 83690; 85025; 87210; 87661; 96374; 99283; J1885

== ENCOUNTER → 2021-04-08 | Outpatient (CLI) | payer OTHER, MEDICAID ==
--- NOTE | 2021-04-08 16:35 | REP ---
INDICATION: ANATOMY COMPARISON: 03/05/2021 TECHNIQUE: Transabdominal obstetrical ultrasound with color Doppler evaluation. FINDINGS: Examination demonstrates a single live intrauterine in breech presentation. motion is identified by technologist. Placenta is noted posterior and grade 1 without evidence for placenta previa or abruption. Amniotic fluid volume is normal. Cervix measures 4.5 cm in length and appears closed.. Selected gestational age: 22 weeks 3 days with DIXIE 08/09/2021. Gestational age by current measurements 23 weeks 3 days with DIXIE 08/02/2021. FHR equals 152 beats per minute. Estimated weight 598 grams (90thpercentile). Anatomical assessment demonstrates normal structures including cranium, choroid plexus, cavum, cerebellum/posterior fossa, facial profile, lungs, four-chamber heart/ventricular outflow tracts, diaphragm, stomach, cord insertion/three-vessel cord, kidneys/bladder, and extremities. Limited evaluation of the orbits, nose/lips and spine. IMPRESSION: Single live intrauterine in breech presentation demonstrating upper limits of normal interval growth and estimated weight. Anatomical limitations as noted above may warrant follow-up. Remainder of the anatomical assessment is complete and normal. <Electronically signed by Hayden Cronin > 04/08/21 2600
== END ==
LOC: M WHC 11:59
PROVIDERS: ATTEND Obstetrics & Gynecology
DX: O10.912 Unspecified pre-existing hypertension complicating pregnancy, second trimester (principal)

== ENCOUNTER 2021-04-19 08:52 | Outpatient (CLI) | payer OTHER, MEDICAID ==
[~2021-04-19] VITALS: Ht 157.5 cm; Wt 117.3 kg
[2021-04-19 09:13] VITALS: BP 141/75
[2021-04-19] MEDS ORDERED: NIFE10CA2 PO (09:39)
[2021-04-19] MEDS ORDERED: HOME MED LIST COMPLETE! XX SCH (09:40)
--- NOTE | 2021-04-19 09:57 | IPNPDOC ---
Text Note Date of Service The patient was seen on 04/19/21. NOTE S: Rebeca is a 30 year old at 24 0/7 as confirmed by 1st trimester ultrasound who presents to labor and delivery triage with complaints of leaking fluid this morning. She reports she continued to soak a pad after emptying her bladder. Reports positive movement, no vaginal bleeding or uterine contractions, and no abnormal vaginal discharge. Her is complicated by history of preeclampsia, chronic hypertension, C/S x 4, borderline personality disorder, and delivery of twins. Medical-Chronic hypertension, borderline personality disorder, history of depression Medications-nifedipine, ASA, abilify, lexapro, lamictal, ondansetron, vitamin, and esgic as needed Surgical-hx of C/S x 4 Family-DM, htn, epilepsy, anxiety, bipolar, schizophrenia Social-tobacco use, denies alcohol or illicit drug use. . O: VS-see below General-alert and oriented x 3 Respiratory-breathing comfortably on room air, no use of accessory muscles Genitourinary- SSE reveals cervix that is closed and thick. Negative nitrazine test, negative for pooling of fluid with valsalva, and negative ferning. Limited bedside ultrasound reveals NICKY of 17cm, breech presentation, posterior placenta, and active fetus. FHR at 150, toco reveals no uterine contractions. A: IUP at 24 0/7 gestation, not ruptured. P: Reviewed monitoring of fetus with kick counts. Educated to report any vaginal bleeding, loss of fluids, fever, or decreased movement. Patient to f/u in office on 04/23/21 for her next visit. Discharged to home. VS,Rajat, I+O VS, [place], I+O Vital Signs Date Time Temp Pulse Resp B/P (MAP) Pulse Ox O2 Delivery O2 Flow Rate FiO2 04/19/21 09:13 98.2 77 20 141/75 (97) BUDDY WRAY CNM Apr 19, 2021 09:57
== END 2021-04-19 09:48 | disposition home or self-care (01) ==
LOC: M LDO 08:52
PROVIDERS: ATTEND Advanced Practice Midwife
DX: O26.892 Other specified pregnancy related conditions, second trimester (principal); N89.9 Noninflammatory disorder of vagina, unspecified; O11.2 Pre-existing hypertension with pre-eclampsia, second trimester; F60.3 Borderline personality disorder; O34.219 Maternal care for unspecified type scar from previous cesarean delivery; O99.342 Other mental disorders complicating pregnancy, second trimester; O09.212 Supervision of pregnancy with history of pre-term labor, second trimester; O32.1XX1 Maternal care for breech presentation, fetus 1; Z3A.24 24 weeks gestation of pregnancy

== ENCOUNTER → 2021-05-07 | Outpatient (CLI) | payer OTHER, MEDICAID ==
[~2021-05-07] MED LIST changes: +NIFE10CA2 PO
--- NOTE | 2021-05-07 15:22 | REP ---
INDICATION: FOLLOW UP ANATOMY. COMPARISON: 04/08/2021 TECHNIQUE: Limited Ob ultrasound for an Sohan Martinez follow-up FINDINGS: Scanning demonstrates a viable single intrauterine gestation in a variable lie. motion is observed and heart rate is recorded at 128 beats per minute. An posterior, grade zero placenta is seen without evidence of previa. Three-vessel cord with mid cord insertion. Amniotic fluid is subjectively normal. Closed cervical length is measured at 3.9 cm transabdominally. No extrauterine abnormality is observed. There has been appropriate interval growth. Limited anatomic follow-up was performed. On today's exam the entire spine, nose and lips view and orbits views are visualized and appear grossly unremarkable. This should be considered to complete the anatomy screen.. Biometry chart: BPD 7.0 cm; 28 weeks 2 days Head circumference 26.2 cm; 28 weeks 4 days Abdominal circumference 23.9 cm; 28 weeks 1 days Femur length 5.4 cm; 28 weeks 3 days Humeral length 5 cm; 29 weeks 0 days HC/AC ratio normal 1.1 Cephalic index normal 0.74 Estimated weight 1204 grams, 2 pounds 10 ounces, >97th percentile for 26 weeks 4 days. IMPRESSION: Viable single intrauterine gestation at 28 weeks 3 days by today's composite sonographic criteria. Expected gestational age estimate based on prior sonography is 26 weeks is 4 days. DIXIE by prior sonography 08/09/2021. No anomaly, anatomy screen completed today as stated above.. <Electronically signed by Tien Ritchie > 05/07/21 [id number]
== END ==
LOC: M WHC 08:59
PROVIDERS: ATTEND Obstetrics & Gynecology
DX: O10.912 Unspecified pre-existing hypertension complicating pregnancy, second trimester (principal)

== ENCOUNTER 2021-06-14 14:39 | Inpatient (IN) | payer OTHER, MEDICAID ==
[2021-06-14] VITALS (9 sets, daily range): BP systolic 141–170; BP diastolic 77–104
[~2021-06-14] VITALS: Ht 154.9 cm; Wt 117.3 kg
[2021-06-14] MEDS ORDERED: PERCOCET 5MG/325MG TAB PO ONE (15:10)
[2021-06-14] MEDS ORDERED: HOME MED LIST COMPLETE! XX SCH (15:10)
[2021-06-14] MEDS ORDERED: ACET-907 PO (15:10)
[2021-06-14 16:02] LABS: TOTAL PROTEIN,RANDOM URINE 35.1 MG/DL (0.0-12.0)
[2021-06-14 16:03] LABS: HEMATOCRIT 36.5 % (36.0-47.0); MEAN CORPUSCULAR HEMOGLOBIN 29.8 pg (27.0-33.0); MEAN CORPUSCULAR HGB CONC 32.9 g/dl (32.0-36.5); MEAN CORPUSCULAR VOLUME 90.6 fl (80.0-96.0); PLATELET COUNT, AUTOMATED 320 10^3/uL (150-450); RED BLOOD COUNT 4.03 10^6/uL (4.00-5.40); WHITE BLOOD COUNT 13.4 10^3/uL (4.0-10.0)
[2021-06-14 16:45] LABS: ALT/SGPT 25 U/L (12-78); BILIRUBIN,TOTAL 0.2 MG/DL (0.2-1.0); CREATININE FOR GFR 0.39 MG/DL (0.55-1.30); GLOMERULAR FILTRATION RATE > 60.0 (>60); LDH LACTATE DEHYDROGENASE 216 U/L (84-246); URIC ACID 4.7 MG/DL (2.6-6.0)
[2021-06-14] MEDS ORDERED: NIFEdipine 30 MG XL TAB PO STA (16:59)
[2021-06-14] MEDS ORDERED: NIFE60TA40 PO (17:15)
--- NOTE | 2021-06-14 17:24 | IPNPDOC ---
Text Note Date of Service The patient was seen on 06/14/21. NOTE Subjective: Sylwia is a 30-year-old female who is a at 32 weeks gestation with an DIXIE of 08/09/21. She initiated care in her first trimester of at [facility]. She is complicated by CHTN, which she was switched from 2 antihypertensives to Labetalol. She didn't tolerate the Labetalol's side effects and was switched to Nifedipine 30 mg XR. She is on multiple psychiatric medications. She had an appointment in the office today with a normotensive BP. She called with complaints of a headache a few hours after her visit. She was directed to come into labor and delivery for evaluation. She reports headache to be an 8/10. She was given a Percocet and within 1.5 hours reported no headache. She had taken Tylenol an hour prior to coming to hospital. She reports random headaches after being here that go away on their own. Medical Hx: SHEILA was on Lisinopril and Hydroclorathiazide. Borderline personality disorder stable on Lamictal, Abilify and Lexapro. Hx of panc reatitis, hx of acute cholecystitis. Surgical Hx: LTCS x4; tonsillectomy, surgery on ureter Family Hx: diabetes, HTN, epilepsy, depression, bipolar, schizophrenia, and anxiety Social Hx: smoker, , unemployed, denies alcohol or drug use OB Hx: -10/31/2012: 40 weeks primary LTCS of living male weighting 8 lbs 8 oz, arrest of dilation, preeclampsia -03/27/2014: Di/di twin PPROM at 29.4 weeks; Repeat LTCS of males weighing 3 lbs 3 oz and 3 lbs 9 oz; placental abruption -04/30/15: repeat LTCS at 38.2 weeks gestation of female weighing 8 lbs 7 oz; CHTN -12/29/16: repeat LTCS at 38 weeks of male weighting 8 lbs 5 oz; CHTN Objective: VS, labs and ultrasound: see below. BPs labile. FHR: 130, moderate variability, noted 10x10 accelerations, no decelerations. Difficult to obtain strip. Fetus very active and patient has a large abdomen. [place]: Contractions: none General: Awake and alert. Does not appear to be in any distress. Respiratory: regular rate and rhythm. CTA bilaterally. Abdomen: soft and not tender with palpation Extremities: generalized edema, no pitting. +1 pedal reflexes. Assessment: IUP at 32 weeks gestation, CHTN with superimposed preeclampsia Plan: Discussed labs, vitals and symptoms with Dr. Yee. Plan collaborated with him. Instructed to increase Nifedipine 30 mg XL. Reviewed the need for APFT with growth being done today along with BPP due to fetus being difficult to monitor due to maternal habitus. She is to schedule another growth ultrasound for 36 weeks and weekly BPPs due to her being difficult to monitor. Glucose test done today while patient is present in labor and delivery as she hasn't done this yet. Will continue to monitor overnight as her BPs and headaches have been very labile. Saline lock started. Will consider IV antihypertensives if needed. VS,Fishbone, I+O VS, Fishbone, I+O Laboratory Tests 06/14/21 15:43 Item Value Date Time Creatinine 0.39 MG/DL L 06/14/21 1543 Glomerular Filtration Rate > 60.0 06/14/21 1543 Uric Acid 4.7 MG/DL 06/14/21 1543 Total Bilirubin 0.2 MG/DL 06/14/21 1543 Aspartate Amino Transf (AST/SGOT) 14 U/L 06/14/21 1543 Alanine Aminotransferase (ALT/SGPT) 25 U/L 06/14/21 1543 Lactate Dehydrogenase 216 U/L 06/14/21 1543 06/14/21 15:50 Item Value Date Time Urine Random Creatinine 105.0 MG/DL 06/14/21 1530 Urine Random Total Protein 35.1 MG/DL H 06/14/21 1530 Vital Signs Date Time Temp Pulse Resp B/P (MAP) Pulse Ox O2 Delivery O2 Flow Rate FiO2 06/14/21 15:51 93 145/87 (106) 06/14/21 15:43 20 Room Air 06/14/21 14:58 98.2 NAME: SYLWIA GREY DATE OF : 1990 AGE: 30 SEX: F REPORT #: [id number] ROOM: [facility] TECHNOLOGIST: ALEC DOCTOR: BUDDY AUGUSTINEM Ordered for Date&Time: 06/14/21 1727 cc: [~ rep ct ivnm] Service Date&Time: EXAMINATION REQUESTED: OBS FOLL UP OR REPEAT EACH GES REASON FOR PATIENT VISIT: BLURRED VISION, BARKER REASON FOR EXAM/COMMENT: growth INDICATION: growth COMPARISON: 05/07/2021 TECHNIQUE: Transabdominal obstetrical ultrasound with color Doppler evaluation. FINDINGS: Examination demonstrates a single live intrauterine in cephalic presentation. motion is identified by technologist. Placenta is noted posterior and grade 1 without evidence for placenta previa or abruption. Amniotic fluid volume is normal. Cervix measures 5.4 cm in length and appears closed. Nuchal cord cannot be excluded and appears to at least drape over the neck. Selected gestational age: 32 weeks 0 days with DIXIE 08/09/2021. Gestational age by current measurements 34 weeks 3 days with DIXIE 07/23/2021. FHR equals 130 beats per minute. BPD: 8.2 cm; 33 weeks 0 days; 65% HC: 31.8 cm; 35 weeks 5 days; greater than 95% AC: 31.4 cm; 35 weeks 2 days; greater than 95% FL: 6.5 cm; 33 weeks 3 days; 71% HL: 6.0 cm; 35 weeks 0 days; greater than 95% HC/AC: 1.01 Estimated weight 2470 grams (88thpercentile). NICKY: 13.0 cm Umbilical artery SD ratio: 2.67 Biophysical profile score: 8/8 IMPRESSION: 1. Single live intrauterine in cephalic presentation demonstrating appropriate estimated weight. Biometric measurements as described above. 2. Biophysical profile score normal. Amniotic fluid index normal. 3. Findings suggest nuchal cord and correlation is required. <Electronically signed by Hayden Cronin > 06/14/21 1749 BUDDY WRAY CNM Jun 14, 2021 17:24
--- NOTE | 2021-06-14 17:53 | REP ---
INDICATION: growth COMPARISON: 05/07/2021 TECHNIQUE: Transabdominal obstetrical ultrasound with color Doppler evaluation. FINDINGS: Examination demonstrates a single live intrauterine in cephalic presentation. motion is identified by technologist. Placenta is noted posterior and grade 1 without evidence for placenta previa or abruption. Amniotic fluid volume is normal. Cervix measures 5.4 cm in length and appears closed. Nuchal cord cannot be excluded and appears to at least drape over the neck. Selected gestational age: 32 weeks 0 days with DIXIE 08/09/2021. Gestational age by current measurements 34 weeks 3 days with DIXIE 07/23/2021. FHR equals 130 beats per minute. BPD: 8.2 cm; 33 weeks 0 days; 65% HC: 31.8 cm; 35 weeks 5 days; greater than 95% AC: 31.4 cm; 35 weeks 2 days; greater than 95% FL: 6.5 cm; 33 weeks 3 days; 71% HL: 6.0 cm; 35 weeks 0 days; greater than 95% HC/AC: 1.01 Estimated weight 2470 grams (88thpercentile). NICKY: 13.0 cm Umbilical artery SD ratio: 2.67 Biophysical profile score: 8/8 IMPRESSION: 1. Single live intrauterine in cephalic presentation demonstrating appropriate estimated weight. Biometric measurements as described above. 2. Biophysical profile score normal. Amniotic fluid index normal. 3. Findings suggest nuchal cord and correlation is required. <Electronically signed by Hayden Cronin > 06/14/21 [id number]
[2021-06-14] MEDS ORDERED: LABETALOL 100MG/20ML VIAL IV STA (19:53)
[2021-06-14] MEDS ORDERED: BETAMETHASONE SOLUSPAN 6MG/ML 5ML VIAL (J0702 PER 3MG) IM SCH (20:30)
[2021-06-14] MEDS: traZODone 50 MG TAB PO SCH (21:13)
[2021-06-14] MEDS: lamoTRIgine 25MG TAB PO SCH (21:13)
[2021-06-14] MEDS: ACETAMINOPHEN 500 MG TAB PO PRN (21:14)
[2021-06-15] VITALS (55 sets, daily range): BP systolic 103–197; BP diastolic 49–102
[2021-06-15] MEDS: ACETAMINOPHEN 500 MG TAB PO PRN ×3 (04:06→20:43)
[2021-06-15] MEDS: lamoTRIgine 25MG TAB PO SCH ×2 (08:37→21:16)
[2021-06-15] MEDS: ARIPiprazole 2 MG TAB PO SCH (08:37)
[2021-06-15] MEDS: ESCITALOPRAM OXALATE 10 MG TAB (LEXAPRO) PO SCH (08:38)
[2021-06-15] MEDS: NIFEdipine 30 MG XL TAB PO SCH (08:40)
[2021-06-15] MEDS ORDERED: NIFEdipine 10 MG CAP PO ONE (09:40)
[2021-06-15] MEDS ORDERED: LABETALOL 100MG/20ML VIAL IV STA (10:04)
[2021-06-15] MEDS ORDERED: LABETALOL 200 MG TAB PO SCH ×2 (12:25→16:00)
[2021-06-15] MEDS ORDERED: LABETALOL 200 MG TAB PO ONE (12:35)
[2021-06-15] MEDS ORDERED: MAG Sulf (L&D) 4 GM/100 ML 4 GM in IV 1 EA IV ONE (14:50)
[2021-06-15] MEDS ORDERED: CALCIUM GLUCONATE 1,000 MG in D5W MINI-BAG PLUS 100 ML IV PRN (14:50)
[2021-06-15] MEDS ORDERED: BETAMETHASONE SOLUSPAN 6MG/ML 5ML VIAL (J0702 PER 3MG) IM PRN (14:50)
[2021-06-15] MEDS ORDERED: LABETALOL 100MG/20ML VIAL IV ONE (15:00)
[2021-06-15] MEDS: MAG Sulf (OBGYN) 20GM/500ML 20,000 MG in IV 1 EA IV SCH (15:47)
[2021-06-15] MEDS: LR 1,000 ML IV SCH (18:12)
--- NOTE | 2021-06-15 20:14 | IPNPDOC ---
Obstetrical Progress Note Date of Service Jun 15, 2021 Subjective Progress Note: 30yo at 32+1 weeks. Pt has been diagnosed/admitted with CHTN w/ superimposed pre-e based on elevated BPs, proteinuria, and symptoms c/w severe features. Patient has received two doses of Betamethasone in anticipation of delivery becoming indicated. Second dose given earlier today. She has complained of both intermittent BARKER and chest pressure today, which prompted her to be placed on Magnesium Sulfate seizure prophylaxis and neuroprotection given the risk of premature delivery becoming indicated. Over the course of this admission, her antihypertensive regimen was increased from Nifedipine 30mg XR to 60mg XR (given this AM) and Labetalol 200mg TID was added. Despite these changes, she has had severe range BP readings requiring IV labetalol for acute control. Antepartum testing has been reassuring thus far. cEFM: Cat I . Kenner: no e/o contractions. Plan is to continue Mag sulfate and IV antihypertensives PRN. Continue cEFM/Kenner. Given the level of prematurity, the goal right now is to extend as muich time as possible for exposure of corticosteroids, of course balancing this with the current maternal condition. Discussed plan to proceed toward delivery via RLTCS / BTL if she continues to clinically deteriorate. NICU / career services assistant made aware of this situation. Collins Nieto DO Objective Vital Signs Date Time Temp Pulse Resp B/P (MAP) Pulse Ox O2 Delivery O2 Flow Rate FiO2 06/15/21 18:25 95 20 148/74 (98) 06/15/21 14:43 100 Room Air 06/15/21 13:03 97.7 PERLA NIETO DO Jun 15, 2021 20:13
[2021-06-15] MEDS: traZODone 50 MG TAB PO SCH (21:15)
[2021-06-15] MEDS: LABETALOL 200 MG TAB PO SCH (22:00)
[2021-06-16] VITALS (23 sets, daily range): BP systolic 129–173; BP diastolic 61–83
[2021-06-16] MEDS: ACETAMINOPHEN 500 MG TAB PO PRN (01:56)
[2021-06-16] MEDS: PERCOCET 5MG/325MG TAB PO PRN ×3 (02:53→21:40)
[2021-06-16] MEDS: LR 1,000 ML IV SCH ×3 (03:04→19:49)
[2021-06-16] MEDS: MAG Sulf (OBGYN) 20GM/500ML 20,000 MG in IV 1 EA IV SCH ×2 (04:34→14:11)
[2021-06-16] MEDS ORDERED: PROMETHAZINE INJ 25 MG/ML VIAL (J2550) IV ONE (05:25)
[2021-06-16] MEDS ORDERED: BUTORPHANOL 2 MG/ML INJ (J0595) IV ONE (05:25)
[2021-06-16] MEDS: LABETALOL 200 MG TAB PO SCH ×3 (07:48→21:37)
[2021-06-16] MEDS: lamoTRIgine 25MG TAB PO SCH ×2 (08:48→21:18)
[2021-06-16] MEDS: ESCITALOPRAM OXALATE 10 MG TAB (LEXAPRO) PO SCH (08:48)
[2021-06-16 08:49] LABS: HEMATOCRIT 33.3 % (36.0-47.0); MEAN CORPUSCULAR HEMOGLOBIN 29.9 pg (27.0-33.0); MEAN CORPUSCULAR VOLUME 90.5 fl (80.0-96.0); PLATELET COUNT, AUTOMATED 305 10^3/uL (150-450); RED BLOOD COUNT 3.68 10^6/uL (4.00-5.40); WHITE BLOOD COUNT 12.3 10^3/uL (4.0-10.0)
[2021-06-16] MEDS: NIFEdipine 30 MG XL TAB PO SCH (08:49)
[2021-06-16] MEDS: ARIPiprazole 2 MG TAB PO SCH (08:50)
[2021-06-16 09:17] LABS: ALT/SGPT 20 U/L (12-78); BILIRUBIN,TOTAL 0.2 MG/DL (0.2-1.0); CREATININE FOR GFR 0.61 MG/DL (0.55-1.30); GLOMERULAR FILTRATION RATE > 60.0 (>60); LDH LACTATE DEHYDROGENASE 167 U/L (84-246)
[2021-06-16] MEDS ORDERED: ACETAMINOPHEN 325 MG TAB PO ONE (10:50)
[2021-06-16 13:25] LABS: HEMATOCRIT 32.6 % (36.0-47.0); HEMOGLOBIN 10.6 g/dl (12.0-15.5); MEAN CORPUSCULAR HEMOGLOBIN 29.6 pg (27.0-33.0); MEAN CORPUSCULAR HGB CONC 32.5 g/dl (32.0-36.5); MEAN CORPUSCULAR VOLUME 91.1 fl (80.0-96.0); PLATELET COUNT, AUTOMATED 295 10^3/uL (150-450); RED BLOOD COUNT 3.58 10^6/uL (4.00-5.40); WHITE BLOOD COUNT 11.6 10^3/uL (4.0-10.0)
[2021-06-16 13:53] LABS: ALT/SGPT 20 U/L (12-78); BILIRUBIN,TOTAL 0.2 MG/DL (0.2-1.0); CREATININE FOR GFR 0.55 MG/DL (0.55-1.30); GLOMERULAR FILTRATION RATE > 60.0 (>60); LDH LACTATE DEHYDROGENASE 179 U/L (84-246); URIC ACID 5.1 MG/DL (2.6-6.0)
[2021-06-16] MEDS ORDERED: OXYTOCIN DRIP 30 UNITS in IV 1 EA IV PRN (14:55)
[2021-06-16] MEDS ORDERED: ceFAZolin SOD 3 GM IV Place Holder IV ONE (14:55)
[2021-06-16] MEDS ORDERED: LR 1,000 ML IV SCH ×2 (14:55→19:20)
[2021-06-16] MEDS ORDERED: BICITRA 30ML SOLN UDC PO ONE (14:55)
[2021-06-16] MEDS ORDERED: ceFAZolin SOD 1 GM in D5W MINI-BAG PLUS 50 ML IV ONE (15:10)
[2021-06-16] MEDS ORDERED: ceFAZolin SOD 2 GM in IV 1 EA IV ONE (15:10)
[2021-06-16] MEDS ORDERED: MORPHINE PRES-FREE INJ 10 MG/10 ML VIAL (J2274) As Ordered ONE (17:32)
[2021-06-16] MEDS ORDERED: OXYTOCIN INJ 10 UNITS/ML VIAL (J2590) As Ordered ONE (17:32)
[2021-06-16 18:12] LABS: CORD GAS ABE A -1.8; CORD GAS ABE V -0.8; CORD GAS HCO3 A 25.7 MEQ/L; CORD GAS HCO3 V 25.1 MEQ/L; CORD GAS O2 SAT A 62.5 %; CORD GAS O2 SAT V 85.4 %; CORD GAS PCO2 A 54.2 mmHg; CORD GAS PH A 7.293 UNITS; CORD GAS PH V 7.355 UNITS; CORD GAS PO2 V 39.4 mmHg; CORD GAS SBC A 22.1 MEQ/L; CORD GAS SBC V 23.5 MEQ/L; CORD GAS TCO2 A 27.3 MEQ/L; CORD GAS TCO2 V 26.5 MEQ/L
[2021-06-16] MEDS ORDERED: MOM 30ML SUSPENSION UDC PO PRN (18:15)
[2021-06-16] MEDS ORDERED: RHOGAM 300 MCG (1500 IU) INJ (J2790) IM SCH (18:15)
[2021-06-16] MEDS ORDERED: PERCOCET 5MG/325MG TAB PO PRN ×2 (18:15→19:20)
[2021-06-16] MEDS ORDERED: ONDANSETRON 4MG/2ML VIAL IV PRN ×2 (18:15→19:20)
[2021-06-16] MEDS ORDERED: OXYTOCIN DRIP 30 UNITS in IV 1 EA IV SCH (18:15)
[2021-06-16] MEDS ORDERED: SIMETHICONE 80MG CHEW TAB PO PRN (18:15)
[2021-06-16] MEDS ORDERED: MEASLES,MUMPS,RUBELLA VACCINE INJ (MMR-II) (90707) SC SCH (18:15)
--- NOTE | 2021-06-16 18:26 | ROOPDOC ---
[facility] Report Of Operation Report of Operation DATE OF PROCEDURE: 06/16/21 Report of operation Preoperative diagnosis:32 2/7 weeks gestation, preeclampsia with severe features, Prior section x 4 Postoperative diagnosis:same Procedure: Repeat low transverse section and bilateral tubal ligation. Surgeon: Regino Navarro M.D. Asst.: Rafael Hudson CNM EBL: 500 ml. Urine output: 100 mL's. Findings: 5 lbs. 4 oz. female infant, 's 8 and 9, light meconium present, adhesions of uterus to anterior abdominal wall, normal fallopian tubes, ovaries. Operative summary: Patient taken to the operating room where spinal anesthesia was induced. She was prepped and draped in a sterile fashion in the supine position. A Emmanuel catheter was placed. A Pfannenstiel skin incision was made with scalpel. Fascia was incised and extended bilaterally. The peritoneal cavity was entered. The fascia was dissected off the rectus muscles. Adhesions of uterus to anterior abdominal wall were taken down sharply. A Mobius retractor was placed. A bladder flap was created. A curvilinear incision was made in lower uterine segment until Clear fluid was noted. The incision was extended manually. The was delivered from the vertex position without difficulty. Cord was doubly clamped and cut. The infant was handed waiting clothing trades workers. The placenta was expressed. Uterus was closed with O-Vicryl in a running locked fashion. A second imbricating layer of Vicryl was placed. Attention was turned to the fallopian tubes. A [place] clamp was used to grasp the fallopian tubes at the midportion.. A window was created in the broad ligament free tie of 2-0 chromic was placed around the segment of tube on either side of the clamp. A Segment of tube was excised bilaterally and sent to pathology. Peritoneum was closed with 2-0 Vicryl a running fashion. Fascia was closed with 0 Vicryl in running fashion. Skin was closed 4-0 Monocryl subcuticular sutures. Sponge, instrument and needle counts were correct. Rafael Hudson CNM, assisted with all aspects of the procedure. She helped close each layer of the incision and deliver the fetus. REGINO NAVARRO MD Jun 16, 2021 18:26
[2021-06-16] MEDS ORDERED: OXYC1TAB23 PO (18:30)
[2021-06-16] MEDS ORDERED: IBUP80TA PO (18:31)
[2021-06-16] MEDS ORDERED: OXYTOCIN 30 UNITS IN 0.9% NaCl 500ML IV BAG (J2590) As Ordered ONE (18:42)
[2021-06-16] MEDS ORDERED: fentaNYL 100 MCG/2 ML INJECTION (J3010) As Ordered ONE (19:11)
[2021-06-16] MEDS: fentaNYL 100 MCG/2 ML INJECTION (J3010) IV PRN ×3 (19:16→19:28)
[2021-06-16] MEDS ORDERED: KETOROLAC 30 MG/ML 1ML VIAL As Ordered ONE (19:57)
[2021-06-16] MEDS: KETOROLAC 30 MG/ML 1ML VIAL IV SCH (19:59)
[2021-06-16] MEDS: DOCUSATE SODIUM 100MG CAPSULE PO SCH (21:17)
[2021-06-16] MEDS: traZODone 50 MG TAB PO SCH (21:17)
[2021-06-17] VITALS (20 sets, daily range): BP systolic 109–154; BP diastolic 56–76
[2021-06-17] MEDS: KETOROLAC 30 MG/ML 1ML VIAL IV SCH ×3 (00:58→13:38)
[2021-06-17] MEDS: PERCOCET 5MG/325MG TAB PO PRN ×2 (01:49→11:41)
[2021-06-17] MEDS: MAG Sulf (OBGYN) 20GM/500ML 20,000 MG in IV 1 EA IV SCH ×2 (03:05→14:42)
[2021-06-17] MEDS: LABETALOL 200 MG TAB PO SCH ×3 (05:50→21:00)
[2021-06-17] MEDS: LR 1,000 ML IV SCH (07:25)
[2021-06-17 07:30] LABS: HEMATOCRIT 30.2 % (36.0-47.0); HEMOGLOBIN 9.8 g/dl (12.0-15.5); MEAN CORPUSCULAR HEMOGLOBIN 30.2 pg (27.0-33.0); MEAN CORPUSCULAR HGB CONC 32.5 g/dl (32.0-36.5); MEAN CORPUSCULAR VOLUME 93.2 fl (80.0-96.0); PLATELET COUNT, AUTOMATED 281 10^3/uL (150-450); RED BLOOD COUNT 3.24 10^6/uL (4.00-5.40); WHITE BLOOD COUNT 14.3 10^3/uL (4.0-10.0)
[2021-06-17] MEDS: PRENATAL VITAMINS CHEWABLE TABLET PO SCH (09:33)
[2021-06-17] MEDS: ESCITALOPRAM OXALATE 10 MG TAB (LEXAPRO) PO SCH (09:33)
[2021-06-17] MEDS: DOCUSATE SODIUM 100MG CAPSULE PO SCH ×2 (09:33→20:59)
[2021-06-17] MEDS: NIFEdipine 30 MG XL TAB PO SCH (09:33)
[2021-06-17] MEDS: lamoTRIgine 25MG TAB PO SCH ×2 (09:33→21:00)
[2021-06-17] MEDS: ARIPiprazole 2 MG TAB PO SCH (09:33)
[2021-06-17] MEDS: IBUPROFEN 800 MG TAB PO SCH (20:58)
[2021-06-17] MEDS: traZODone 50 MG TAB PO SCH (21:00)
[2021-06-18 02:00] VITALS: BP 123/60
[2021-06-18] MEDS: IBUPROFEN 800 MG TAB PO SCH ×2 (04:28→12:04)
[2021-06-18] MEDS: LABETALOL 200 MG TAB PO SCH (05:45)
[2021-06-18 05:51] VITALS: BP 143/72
[2021-06-18] MEDS: DOCUSATE SODIUM 100MG CAPSULE PO SCH (08:10)
[2021-06-18] MEDS: PRENATAL VITAMINS CHEWABLE TABLET PO SCH (08:10)
[2021-06-18] MEDS: ESCITALOPRAM OXALATE 10 MG TAB (LEXAPRO) PO SCH (08:10)
[2021-06-18 08:11] VITALS: BP 143/72
[2021-06-18] MEDS: NIFEdipine 30 MG XL TAB PO SCH (08:11)
[2021-06-18] MEDS: lamoTRIgine 25MG TAB PO SCH (08:11)
[2021-06-18] MEDS: ARIPiprazole 2 MG TAB PO SCH (08:11)
[2021-06-18] MEDS: PERCOCET 5MG/325MG TAB PO PRN (08:21)
[2021-06-18 10:00] VITALS: BP 143/69
--- NOTE | 2021-06-18 11:00 | DS.PDOC ---
Discharge Summary General Date of Admission Jun 15, 2021 at 14:51 Date of Discharge Jun 18, 2021 Discharge Summary PROCEDURES PERFORMED DURING STAY: Repeat section with bilateral tubal ligation ADMITTING DIAGNOSES: 1. Chronic hypertension with superimposed preeclampsia with severe features @ 32wks gestation 2. Prior section 3. Satisfied parity DISCHARGE DIAGNOSES: 1. Repeat section with bilateral tubal ligation 2. Chronic hypertension COMPLICATIONS/CHIEF COMPLAINT: Blurred Vision, Zazueta. HISTORY OF PRESENT ILLNESS: G6 now [id number] admitted 06/15/21 with severe unrelenting headache at 32 wks gestation. HOSPITAL COURSE: Ms Diaz received betamethasone injections for lung maturity and magnesium sulfate for neuroprotection. A repeat section with bilateral tubal ligation was performed by Dr Paiz 06/16/2021. She is out of bed independently, voiding, bowels have moved. She reports adequate pain management. DISCHARGE MEDICATIONS: Please see below. ALLERGIES: Please see below. PHYSICAL EXAMINATION ON DISCHARGE: VITAL SIGNS: Please see below. Blood pressure controlled on oral medications GENERAL: No distress CARDIOVASCULAR EXAMINATION: HRR, blood pressure controlled RESPIRATORY EXAMINATION: Clear and unlabored ABDOMINAL EXAMINATION: Fundus firm. Dressing intact with old drainage EXTREMITIES: Equal strength and motion SKIN: Intact NEUROLOGICAL EXAMINATION: Grossly intact PSYCHIATRIC EXAMINATION: Appropriate LABORATORY DATA: Please see below. PROGNOSIS: Good ACTIVITY: As tolerated. Pelvic rest DIET: As tolerated DISCHARGE PLAN: Home today with family DISCHARGE INSTRUCTIONS: 1. Routine care and precautions. Oral medications as directed. Remove dressing day 5. Cleanse wound daily with warm soapy water and pat dry. Pelvic rest x 6 wks. Call with fever, nausea, vomiting, chills, foul lochia, wound exudate or s/s infection. 2. Return to office 2 wks and 6 wks. Call prn DISCHARGE CONDITION: Stable TIME SPENT ON DISCHARGE: 10 minutes. Vital Signs/I&Os Vital Signs Date Time Temp Pulse Resp B/P (MAP) Pulse Ox O2 Delivery O2 Flow Rate FiO2 06/18/21 10:00 97.9 82 18 143/69 (93) 99 Room Air I&O- Last 24 Hours up to 6 AM 06/18/21 05:59 Intake Total 2545 ml Output Total 2375 ml Balance 170 ml Discharge Medications Scheduled Aripiprazole (Aripiprazole) 2 Mg Tablet, 2 MG PO DAILY, (Reported) Escitalopram Oxalate (Lexapro) 20 Mg Tablet, 20 MG PO DAILY, (Reported) Ferrous Gluconate (Ferrous Gluconate) 324 Mg Tablet, 324 MG PO BID, (Reported) Ibuprofen (Ibuprofen) 800 Mg Tablet, 800 MG PO Q8H Lamotrigine (Lamotrigine) 25 Mg Tablet, 25 MG PO BID, (Reported) Lisinopril/Hydrochlorothiazide (Lisinopril-Hctz 20-25 mg Tab) 1 Each Tablet, 0.5 TAB PO DAILY, (Reported) Multivitamins (Thera M Plus Tablet) 1 Each Tablet, 1 TAB PO DAILY, (Reported) Nifedipine (Nifedipine) 10 Mg Capsule, 1 CAP PO QID, (Reported) Nifedipine (Nifedipine ER) 60 Mg Tablet.er, 1 TAB PO DAILY Trazodone HCl (Trazodone HCl) 50 Mg Tablet, 50 MG PO QHS, (Reported) Scheduled PRN Oxycodone HCl/Acetaminophen (Oxycodone-Acetaminophen 5-325) 1 Each Tablet, 1 TAB PO TIDP PRN for pain Miscellaneous Medications Acetaminophen (Tylenol) 325 Mg Tablet, 1,000 MG PO, (Reported) Allergies Coded Allergies: Unclassified (Verified Allergy, Intermediate, CHLORINE= HIVES, 06/14/21) Irene Jones CNM Jun 18, 2021 11:00
[2021-06-18] MEDS ORDERED: LABE20TAB PO (11:04)
== END 2021-06-18 12:15 | disposition home or self-care (01) | DRG 540 ==
LOC: M LDO 14:39 → M LDI 06-15 14:51 → M OBS 06-16 20:14
PROVIDERS: ADMIT Obstetrics & Gynecology; ATTEND Advanced Practice Midwife
PROC: 0UB70ZZ Excision of Bilateral Fallopian Tubes, Open Approach (ICD-10-PCS; 2021-06-16)
PROC: 10D00Z1 Extraction of Products of Conception, Low, Open Approach (ICD-10-PCS; principal; 2021-06-16 16:00)
DX: O34.211 Maternal care for low transverse scar from previous cesarean delivery (principal); F60.3 Borderline personality disorder; O99.334 Smoking (tobacco) complicating childbirth; F17.210 Nicotine dependence, cigarettes, uncomplicated; Z3A.32 32 weeks gestation of pregnancy; O11.4 Pre-existing hypertension with pre-eclampsia, complicating childbirth; Z37.0 Single live birth; Z30.2 Encounter for sterilization; O99.344 Other mental disorders complicating childbirth; O10.02 Pre-existing essential hypertension complicating childbirth

== ENCOUNTER 2022-01-22 12:15 | Emergency (ER) | payer MEDICAID, OTHER ==
[~2022-01-22] VITALS: Ht 157.5 cm; Wt 106.5 kg
[~2022-01-22 12:15] MED LIST changes: +ACET-907 PO; +IBUP80TA PO; +LABE20TAB PO; -LISI20TA20 PO; +LISI20TA37 PO; +NIFE60TA40 PO
[2022-01-22] MEDS ORDERED: methylPREDNISolone 125MG 2ML VIAL IV ONE (14:05)
[2022-01-22] MEDS ORDERED: NS 1,000 ML IV ONE (14:05)
[2022-01-22] MEDS ORDERED: ACETAMINOPHEN 325 MG TAB PO ONE (14:10)
[2022-01-22] MEDS ORDERED: KETOROLAC 30 MG/ML 1ML VIAL IM ONE (16:50)
[2022-01-22 18:48] VITALS: BP 180/100
[2022-01-22] MEDS ORDERED: dexameTHASONE 20MG/5ML VIAL (J1100 PER 1MG) IM ONE (19:20)
[2022-01-22 19:42] LABS: BASO # 0.1 10^3/uL (0.0-0.2); BASO % 0.8 % (0.0-1.0); EOS # 0.3 10^3/uL (0.0-0.5); EOS % 3.2 % (0.0-3.0); HEMATOCRIT 34.7 % (36.0-47.0); HEMOGLOBIN 10.2 g/dl (12.0-15.5); LYMPH # 2.8 10^3/uL (1.5-5.0); LYMPH % 30.7 % (24.0-44.0); MEAN CORPUSCULAR HEMOGLOBIN 21.6 pg (27.0-33.0); MEAN CORPUSCULAR HGB CONC 29.4 g/dl (32.0-36.5); MEAN CORPUSCULAR VOLUME 73.5 fl (80.0-96.0); MONO # 0.3 10^3/uL (0.0-0.8); MONO % 3.7 % (2.0-8.0); NEUTROPHILS # 5.5 10^3/uL (1.5-8.5); NEUTROPHILS % 61.3 % (36.0-66.0); PLATELET COUNT, AUTOMATED 410 10^3/uL (150-450); RED BLOOD COUNT 4.72 10^6/uL (4.00-5.40)
[2022-01-22] MEDS ORDERED: AMOX875T2 PO (19:51)
[2022-01-22] MEDS ORDERED: AMLO1TAB24 PO (19:55)
[2022-01-22] MEDS ORDERED: LABE200T3 PO (19:56)
[2022-01-22] MEDS ORDERED: AUGMENTIN 875 MG TAB PO ONE (20:00)
[2022-01-22 20:04] LABS: ERYTHROCYTE SEDIMENTATION RATE 40 mm/hr (0-20)
[2022-01-22 20:09] LABS: ALT/SGPT 18 U/L (12-78); BILIRUBIN,DIRECT 0.1 MG/DL (0.0-0.2); BILIRUBIN,TOTAL 0.4 MG/DL (0.2-1.0); BLOOD UREA NITROGEN 11 MG/DL (7-18); C REACTIVE PROTEIN QUANTITATIV 1.97 MG/DL (0.00-0.30); CALCIUM LEVEL 9.5 MG/DL (8.5-10.1); CARBON DIOXIDE LEVEL 25 MEQ/L (21-32); CHLORIDE LEVEL 110 MEQ/L (98-107); CREATININE FOR GFR 0.81 MG/DL (0.55-1.30); GLOMERULAR FILTRATION RATE > 60.0 (>60); GLUCOSE, FASTING 81 MG/DL (70-100); LIPASE 60 U/L (73-393); POTASSIUM SERUM 3.8 MEQ/L (3.5-5.1); SODIUM LEVEL 141 MEQ/L (136-145); TOTAL PROTEIN 7.4 GM/DL (6.4-8.2)
[2022-01-22 20:36] LABS: RSV AMPLIFICATION NEGATIVE (NEGATIVE)
== END 2022-01-22 20:06 | disposition home or self-care (01) ==
LOC: M ED 12:15
DX: K05.219 Aggressive periodontitis, localized, unspecified severity (principal); R68.84 Jaw pain; I11.0 Hypertensive heart disease with heart failure; R59.0 Localized enlarged lymph nodes; G43.909 Migraine, unspecified, not intractable, without status migrainosus; F60.3 Borderline personality disorder; F17.200 Nicotine dependence, unspecified, uncomplicated; Z87.19 Personal history of other diseases of the digestive system; Z91.048 Other nonmedicinal substance allergy status; Z79.899 Other long term (current) drug therapy
CPT/HCPCS: 36415; 70490; 71046; 80048; 80076; 83605; 83690; 85025; 85652; 86140; 87040; 87631; 93005; 96372; 99284; J1100; J1885

== ENCOUNTER → 2023-08-08 | Outpatient (CLI) | payer OTHER ==
[~2023-08-08] MED LIST changes: +AMLO1TAB24 PO; +AMOX875T2 PO; +CEFD300CAP PO; -LABE100T4 PO; +LABE100T6 PO; +LABE200T5 PO; -NIFE60TA40 PO; +NIFE60TA96 PO
== END ==
LOC: M PLALAB 10:19
PROVIDERS: ATTEND Obstetrics & Gynecology
DX: N93.9 Abnormal uterine and vaginal bleeding, unspecified (principal)

== ENCOUNTER → 2023-08-14 | Outpatient (CLI) | payer OTHER | LOC: M RAD 15:59 | PROVIDERS: ATTEND Obstetrics & Gynecology | DX: N93.9 Abnormal uterine and vaginal bleeding, unspecified (principal) ==

== ENCOUNTER → 2023-08-17 | Outpatient (CLI) | payer OTHER | LOC: M WUC 15:13 | PROVIDERS: ATTEND Student in an Organized Health Care Education/Training Program | DX: R06.02 Shortness of breath (principal) ==

== ENCOUNTER → 2023-09-12 | Outpatient (CLI) | payer OTHER ==
[2023-09-12 10:56] LABS: HEMATOCRIT 29.6 % (36.0-47.0); HEMOGLOBIN 8.2 g/dl (12.0-15.5); MEAN CORPUSCULAR HEMOGLOBIN 18.6 pg (27.0-33.0); MEAN CORPUSCULAR HGB CONC 27.7 g/dl (32.0-36.5); MEAN CORPUSCULAR VOLUME 67.3 fl (80.0-96.0); PLATELET COUNT, AUTOMATED 349 10^3/uL (150-450); WHITE BLOOD COUNT 8.1 10^3/uL (4.0-10.0)
[2023-09-12 11:22] LABS: FERRITIN 3.4 NG/ML (7.3-270.7); FREE T4 1.02 NG/DL (0.89-1.76); PERCENT SATURATION 3.2 % (13.2-45.0)
[2023-09-12 11:23] LABS: THYROID STIMULATING HORMONE 3.321 uIU/ML (0.55-4.78)
[2023-09-12 11:24] LABS: ESTRADIOL 114.1 PG/ML; FOLLICLE STIMULATING HORMONE 7.7 mIU/ML; LUTEINIZING HORMONE 5.5 mIU/ML; PROLACTIN 8.92 NG/ML
== END ==
LOC: M LAB 09:07
PROVIDERS: ATTEND Obstetrics & Gynecology
DX: N93.9 Abnormal uterine and vaginal bleeding, unspecified (principal)

== ENCOUNTER → 2023-11-07 | Outpatient (CLI) | payer OTHER | LOC: M WUC 14:26 | PROVIDERS: ATTEND Physician Assistant | DX: S83.421A Sprain of lateral collateral ligament of right knee, initial encounter (principal); W18.30XA Fall on same level, unspecified, initial encounter; Y92.009 Unspecified place in unspecified non-institutional (private) residence as the place of occurrence of the external cause ==

== ENCOUNTER → 2024-06-10 | Outpatient (CLI) | payer OTHER ==
[~2024-06-10] MED LIST changes: -NIFE10CA2 PO; +NIFE10CA61 PO
== END ==
LOC: M WUC 09:21
PROVIDERS: ATTEND Nurse Practitioner Family
DX: M79.671 Pain in right foot (principal)

== ENCOUNTER → 2024-10-31 | Outpatient (CLI) | payer OTHER ==
[2024-10-31 15:34] LABS: HEMATOCRIT 28.7 % (36.0-47.0); HEMOGLOBIN 7.9 g/dl (12.0-15.5); MEAN CORPUSCULAR HEMOGLOBIN 18.2 pg (27.0-33.0); MEAN CORPUSCULAR HGB CONC 27.5 g/dl (32.0-36.5); MEAN CORPUSCULAR VOLUME 66.3 fl (80.0-96.0); PLATELET COUNT, AUTOMATED 435 10^3/uL (150-450); RED BLOOD COUNT 4.33 10^6/uL (4.00-5.40); WHITE BLOOD COUNT 4.5 10^3/uL (4.0-10.0)
[2024-10-31 15:39] LABS: CREATININE, URINE 122.2 MG/DL; MAU/CREAT RATIO 64.6 MCG/MG (0.0-30.0)
[2024-10-31 15:40] LABS: ALBUMIN 3.8 G/DL (3.2-5.2); ALKALINE PHOSPHATASE 79 U/L (35-104); ALT/SGPT 20 U/L (7.0-40); AST/SGOT 15 U/L (<34); BILIRUBIN,TOTAL 0.3 MG/DL (0.3-1.2); BLOOD UREA NITROGEN 8 MG/DL (9-23); CARBON DIOXIDE LEVEL 30 MMOL/L (20-31); CHLORIDE LEVEL 104 MMOL/L (98-107); CREATININE FOR GFR 0.64 MG/DL (0.55-1.30); GLOMERULAR FILTRATION RATE > 90.0 (>60); GLUCOSE, FASTING 103 MG/DL (60-100); POTASSIUM SERUM 3.8 MMOL/L (3.5-5.1); SODIUM LEVEL 141 MMOL/L (136-145); TOTAL PROTEIN 7.7 G/DL (5.7-8.2)
[2024-10-31 15:42] LABS: THYROID STIMULATING HORMONE 2.858 uIU/ML (0.55-4.78)
== END ==
LOC: M PLALAB 12:39
PROVIDERS: ATTEND Family Medicine
DX: I10 Essential (primary) hypertension (principal)

== ENCOUNTER 2025-01-06 13:49 | Outpatient (CLI) | payer OTHER ==
[~2025-01-06 13:49] MED LIST changes: +ALBUTEROL SULFATE 2.5 MG/0.5 ML INH CONCENTRATE NEB SOLN INH PRN; +EPINEPHrine INJ 1 MG/ML 1ML AMP IM PRN; +LAMO-18 PO; -LAMO25TA4 PO; +diphenhydrAMINE 50 MG/ML VIAL IV PRN
[2025-01-06] MEDS: IRON SUCROSE 200MG IVP IV ONE (14:21)
[2025-01-06 14:40] VITALS: BP 136/88; O2SAT 97
[2025-01-06 15:26] VITALS: BP 132/84; O2SAT 98
== END 2025-01-06 15:22 | disposition home or self-care (01) ==
LOC: M INFU 13:49
PROVIDERS: ATTEND Family Medicine
DX: D50.0 Iron deficiency anemia secondary to blood loss (chronic) (principal)
CPT/HCPCS: 96374; J1756

== ENCOUNTER 2025-01-07 14:05 | Outpatient (CLI) | payer OTHER ==
[2025-01-07 14:20] VITALS: BP 144/96; O2SAT 99
[2025-01-07] MEDS: IRON SUCROSE 200 MG IVP IV ONE (14:26)
[2025-01-07 14:49] VITALS: BP 138/89; O2SAT 97
== END 2025-01-07 14:55 ==
LOC: M INFU 14:05
PROVIDERS: ATTEND Family Medicine
DX: D50.0 Iron deficiency anemia secondary to blood loss (chronic) (principal)
CPT/HCPCS: 96374; J1756

== ENCOUNTER 2025-01-08 15:00 | Outpatient (CLI) | payer OTHER ==
[~2025-01-08] VITALS: Ht 157.5 cm; Wt 63.6 kg
[2025-01-08 15:00] VITALS: BP 133/73; O2SAT 100
[2025-01-08] MEDS: IRON SUCROSE 200MG IVP IV ONE (15:18)
[2025-01-08 16:10] VITALS: BP 140/75; O2SAT 100
== END 2025-01-08 16:10 ==
LOC: M INFU 15:00
PROVIDERS: ATTEND Family Medicine
DX: D50.0 Iron deficiency anemia secondary to blood loss (chronic) (principal)
CPT/HCPCS: 96374; J1756

== ENCOUNTER 2025-01-09 14:48 | Outpatient (CLI) | payer OTHER ==
[2025-01-09 15:00] VITALS: BP 155/88; O2SAT 100
[2025-01-09] MEDS: IRON SUCROSE 200MG IVP IV ONE (15:01)
[2025-01-09 16:00] VITALS: BP 142/90; O2SAT 100
== END 2025-01-09 16:00 ==
LOC: M INFU 14:48
PROVIDERS: ATTEND Family Medicine
DX: D50.0 Iron deficiency anemia secondary to blood loss (chronic) (principal)
CPT/HCPCS: 96374; J1756

== ENCOUNTER 2025-01-10 15:17 | Outpatient (CLI) | payer OTHER ==
[2025-01-10 15:30] VITALS: BP 157/84; O2SAT 100
[2025-01-10] MEDS: IRON SUCROSE 200MG IVP IV ONE (15:51)
[2025-01-10 16:52] VITALS: BP 160/94; O2SAT 100
== END 2025-01-10 16:55 | disposition home or self-care (01) ==
LOC: M INFU 15:17
PROVIDERS: ATTEND Family Medicine
DX: D50.0 Iron deficiency anemia secondary to blood loss (chronic) (principal)
CPT/HCPCS: 96374; J1756

== ENCOUNTER → 2025-01-14 | Outpatient (CLI) | payer OTHER ==
[~2025-01-14] MED LIST changes: -ALBUTEROL SULFATE 2.5 MG/0.5 ML INH CONCENTRATE NEB SOLN INH PRN; -EPINEPHrine INJ 1 MG/ML 1ML AMP IM PRN; -diphenhydrAMINE 50 MG/ML VIAL IV PRN
[2025-01-15 10:42] LABS: PLATELET COUNT, AUTOMATED 301 10^3/uL (150-450)
[2025-01-15 10:48] LABS: ERYTHROCYTE SEDIMENTATION RATE 112 mm/hr (0-20)
[2025-01-15 11:12] LABS: ALT/SGPT 19.0 U/L (7.0-40); AST/SGOT 26.0 U/L (<34); C REACTIVE PROTEIN QUANTITATIV 1.17 MG/DL (<1.0); CALCIUM LEVEL 9.8 MG/DL (8.5-10.1); CARBON DIOXIDE LEVEL 26.0 MMOL/L (20-31); CHLORIDE LEVEL 103.0 MMOL/L (98-107); CREATININE FOR GFR 0.92 MG/DL (0.55-1.30); GLOMERULAR FILTRATION RATE 84.3 (>60); POTASSIUM SERUM 4.6 MMOL/L (3.5-5.1); SODIUM LEVEL 142.0 MMOL/L (136-145)
== END ==
LOC: M PLALAB 16:36
PROVIDERS: ATTEND Family Medicine
DX: M79.18 Myalgia, other site (principal); D50.0 Iron deficiency anemia secondary to blood loss (chronic)

== ENCOUNTER → 2025-03-06 | Outpatient (CLI) | payer OTHER ==
[2025-03-06 17:35] LABS: PLATELET COUNT, AUTOMATED 332 10^3/uL (150-450)
[2025-03-06 17:56] LABS: ALT/SGPT 22 U/L (7.0-40); AST/SGOT 18 U/L (<34); CALCIUM LEVEL 10.1 MG/DL (8.5-10.1); CARBON DIOXIDE LEVEL 27 MMOL/L (20-31); CHLORIDE LEVEL 103 MMOL/L (98-107); CREATININE FOR GFR 0.73 MG/DL (0.55-1.30); GLOMERULAR FILTRATION RATE > 90.0 (>60); POTASSIUM SERUM 4.1 MMOL/L (3.5-5.1); SODIUM LEVEL 142 MMOL/L (136-145)
[2025-03-06 17:57] LABS: IRON (FE) 36 UG/DL (50-170); PERCENT SATURATION 9.7 % (13.2-45.0)
== END ==
LOC: M PLALAB 16:16
PROVIDERS: ATTEND Family Medicine
DX: D50.0 Iron deficiency anemia secondary to blood loss (chronic) (principal)

== ENCOUNTER → 2025-05-12 | Outpatient (REF) | payer OTHER ==
[2025-05-15 16:03] LABS: HPV APTIMA Not Detected (Not Detected)
== END ==
LOC: M SFHCWAGY 13:14
PROVIDERS: ATTEND Obstetrics & Gynecology
DX: Z12.4 Encounter for screening for malignant neoplasm of cervix (principal)